=== PATIENT | female | born 1990 | race Caucasian/White ===

== ENCOUNTER 2024-09-16 00:45 | Emergency (ER) | payer BC, SELFPAY ==
[2024-09-16 00:49] VITALS: BP 137/70; PULSE 97; TEMP 36.9; O2SAT 96; BMI 29.0
--- NOTE | 2024-09-16 00:58 | XR_ITS ---
The [address] [address] Patient Name: EDMUND DUONG MRN: [id number] date: 1990 Sex: F Assigned Patient Location: ED.MAIN Current Patient Location: ER Accession/Order Number: [id number] Exam Date: 09/16/2024 01:22 Report Date: 09/16/2024 01:57 At the request of: SHANEL SLATER Procedure: XR chest 1V EXAMINATION:XR chest 1V INDICATION:SOB COMPARISON:None TECHNIQUE:A single frontal view of the chest is submitted. FINDINGS: The cardiomediastinal silhouette is not enlarged. The pulmonary vascularity is within normal limits. The lungs are clear based on chest radiography. There is no costophrenic angle blunting. XR/XR chest 1V IMPRESSION: Unremarkable plain film examination of the chest. Electronically authenticated by: EBEN GILMAN Date: 09/16/2024 01:57
--- NOTE | 2024-09-16 00:58 | ED.SOB1 ---
HPI - SOB/Dyspnea General Chief Complaint: Shortness of Breath/Dyspnea Stated Complaint: sob Time Seen by Provider: 09/16/24 00:46 Source: patient Mode of arrival: walk-in Limitations: no limitations History of Present Illness HPI Narrative: 34-year-old female presents for cough and wheezing and shortness of breath of 3 days duration. She has been coughing up some yellow phlegm. Her kids were ill but they have gotten better and did not need to go to the doctor. She has no history of asthma but she smokes cigarettes. Related Data Previous Rx's ?Medication ?Instructions ?Recorded albuterol sulfate 90 mcg/actuation 2 inh inhalation Q4H PRN shortness 09/16/24 aerosol inhaler of breath or wheezing #8.5 grams Allergies Allergy/AdvReac Type Severity Reaction Status Date / Time amoxicillin (From Augmentin) Allergy Mild Anaphylaxis Verified 09/16/24 00:49 clavulanic acid (From Allergy Mild Anaphylaxis Verified 09/16/24 00:49 Augmentin) PFSH PFSH Social History Little interest or pleasure in doing things: not at all Feeling down, depressed, or hopeless: not at all Exam Constitutional Vital Signs, click to edit/add: Last Vital Signs Temp 98.4 F 09/16/24 00:49 Pulse 84 09/16/24 01:09 Resp 24 H 09/16/24 01:09 BP 137/70 09/16/24 00:49 Pulse Ox 96 09/16/24 01:09 O2 Del Method Room Air 09/16/24 01:09 Course Vital Signs Vital signs: Vital Signs Temperature 98.4 F 09/16/24 00:49 Pulse Rate 97 H 09/16/24 00:49 Respiratory Rate 28 H 09/16/24 00:49 Blood Pressure 137/70 09/16/24 00:49 Pulse Oximetry 96 09/16/24 00:49 Oxygen Delivery Method Room Air 09/16/24 00:49 Temperature 98.4 F 09/16/24 00:49 Pulse Rate 84 09/16/24 01:09 Respiratory Rate 24 H 09/16/24 01:09 Blood Pressure 137/70 09/16/24 00:49 Pulse Oximetry 96 09/16/24 01:09 Oxygen Delivery Method Room Air 09/16/24 01:09 MDM - SOB/Dyspnea MDM Narrative Medical decision making narrative: Chest x-ray, COVID, and influenza test are all negative. She feels very much better after aerosol treatment and she is discharged home on albuterol. Treatment diagnosis and follow-up were discussed with the patient. Differential Diagnosis Differential diagnosis: Likely community acquired pneumonia and other (Viral URI, COVID, influenza) Lab Data Attestation: I reviewed the patient's lab results. Labs: Lab Results 09/16/24 Range/Units 01:04 Influenza Type A Ag Negative Influenza Type B Ag Negative SARS-CoV-2 Ag (CV2AG) Negative (NEGATIVE) Imaging Data Chest x-ray: Radiologist's impression: ITS Impressions Chest X-Ray 09/16/24 00:58 IMPRESSION: Unremarkable plain film examination of the chest. Electronically authenticated by: EBEN GILMAN Date: 09/16/2024 01:57 Discharge Plan Discharge Chief Complaint: Shortness of Breath/Dyspnea Clinical Impression: Viral upper respiratory infection Patient Disposition: Home, Self-Care Time of Disposition Decision: 02:09 Condition: Good Mode of Transportation: Private Vehicle Prescriptions / Home Meds: New albuterol sulfate 90 mcg/actuation HFA aerosol inhaler 2 inh inhalation Q4H PRN (Reason: shortness of breath or wheezing) Qty: 8.5 0RF Print Language: Belarusian Instructions: Upper Respiratory Infection (ED) Referrals: Physician,Non-Staff, MD [Primary Care Provider] - 1 week
[2024-09-16 01:09] VITALS: PULSE 84; O2SAT 96
[2024-09-16] MEDS: ALBUTEROL SULFATE 2.5 MG/3 ML VIAL NEB IH (01:12)
[2024-09-16 01:22] LABS: Influenza Virus A Antigen Negative; Influenza Virus B Antigen Negative; Internal Control Within Normal Limits; SARS-CoV-2 Ag NEGATIVE (NEGATIVE)
[2024-09-16 02:23] VITALS: PULSE 81; O2SAT 97
== END 2024-09-16 02:14 | disposition home or self-care (01) ==
PROVIDERS: Emergency Provider Emergency Medicine
DX: J06.9 Acute upper respiratory infection, unspecified (principal); Z20.822 Contact with and (suspected) exposure to COVID-19
CPT/HCPCS: 71045; 87804; 87811; 94640; 99284

== ENCOUNTER 2024-12-02 19:38 | Emergency (ER) | payer BC, SELFPAY ==
[2024-12-02] VITALS (19 sets, daily range): BP systolic 108–153; BP diastolic 50–74; PULSE 72–102; TEMP 36.7; O2SAT 96–100; BMI 29.8
--- OUTSIDE RECORDS SUMMARY | 2024-12-02 19:43 | XMS_ITS | CCD ---
Author Organization [facility] Care Team Providers Care Music Instructor Name Role Phone Roshni Dow Unavailable Maxime Hardy Unavailable MD Fatemeh Neil Primary Care Provider MD Orlando Pereira Attending Provider Orlando Pereira Unavailable MD Fatemeh Neil Primary Care Provider DO Edmar Khan Emergency Provider Fatemeh Neil Primary Care Unavailable Edmar Khan Admitting Unavailable Edmar Khan Attending Unavailable Orlando Pereira Admitting Unavailable Orlando Pereira Attending Unavailable Fatemeh Neil Primary Care Unavailable LANDENECK, DR MONICA Vargas Admitting Unavailabl e REINECK, DR MONICA Vargas Attending Unavailabl e REINECK, DR MONICA Vargas Consulting Unavailabl e JOLYNN, DR SCHMIDT Primary Care Unavailable JOLYNN, DR SCHMIDT Primary Care Unavailable JEWELS, DR JENNIFER Castillo Consulting Unavailable HEMMER, DR KELLE Ozuna Admitting Unavailable HEMMER, DR KELLE Ozuna Attending Unavailable HEMMER, DR KELLE Ozuna Consulting Unavailable JOLYNN, DR SCHMIDT Primary Care Unavailable JEWELS, DR JENNIFER Castillo Consulting Unavailable SIOMARA ROXANE Admitting Unavailable SIOMARAROXANE Attending Unavailable SIOMARA ROXANE Consulting Unavailable JOLYNN, DR SCHMIDT Primary Care Unavailable KARASIK ., DR PIERCE Admitting Unavailabl e KARASIK ., DR PIERCE Attending Unavailabl e KARASIK ., DR PIERCE Consulting Unavailabl e WEST, DR JENNIFER Castillo Consulting Unavailable JOLYNN, DR SCHMIDT Primary Care Unavailable JAQUAN HEMAL Admitting Unavailable JAQUANJACOBY Attending Unavailable JAQUAN, HEMAL Consulting Unavailable Zieber, Irineo Consulting Unavailable DR FATEMEH NEIL Primary Care Unavailable ROXANE STRINGER Attending Unavailable ROXANE STRINGER Admitting Unavailable DR FATEMEH NEIL Primary Care Unavailable ZEINA ., DR VALLE Admitting Unavailable ZEINA ., DR VALLE Attending Unavailable ZEINA ., DR VALLE Consulting Unavailable LD BLAS Consulting Unavailable Chriss CORONA Attending Unavailable Fatemeh Neil MD Primary Care Provider [phone] KELLE REYNOLDS Attending Unavailable Allergies Allergy Classification Reported Allergen(s) Allergy Type Date of Onset Reaction(s) Facility (6 sources) Sulfamethoxazole / Trimethoprim Drug Allergy 09-20-20 24 Anaphylaxis [employer] Other (5 sources) Sulfamethoxazole; Translations: [sulfamethoxazole] Drug Allergy 07-27-20 21 Swelling of Lip/Tongue/Thr oat [facility] (5 sources) Trimethoprim; Translations: [trimethoprim] Drug Allergy 07-27-20 21 Swelling of Lip/Tongue/Thr oat [facility] (2 sources) Sulfamethoxazole / Trimethoprim; Translations: [Bactrim] Drug Allergy 11-09-19 15 [facility] Repository Medications Current Medications Medication Drug Class(es) Dates Sig (Normalized) Sig (Original) acetaminophen 325 mg / HYDROcodone bitartrate 5 mg oral tablet (2 sources) Opioid Agonist Start: 07-27-2021 take 1 tablet by mouth every six hours Hydrocodone-Acetam inophen Active 1 TAB PO Q6H 10 3 July 27, 2021 [id number] 200 actuat albuterol 0.09 mg/actuat metered dose inhaler (4 sources) beta2-Adrenergic Agonist Start: 09-16-2024 End: 09-20-2024 take 2 puff(s) by inhalation every four hours for wheezing albuterol HFA 90 mcg/act inhaler Indications: Acute bronchitis, unspecified organism Inhale 2 puffs every 4 (four) hours if needed for wheezing or shortness of breath 18 g 09/20/2024 Active amoxicillin 875 mg oral tablet (1 source) Penicillin-class Antibacterial Start: 12-01-2021 take 1 tablet by mouth every eight hours Amoxicillin 875 MG 1 tablet Orally every 8 hrs for 10 day(s) Nov, Active azithromycin 250 mg oral tablet (2 sources) Macrolide Antimicrobial Start: 09-20-2024 End: 09-24-2024 take 2 tablets by mouth once daily, then take 1 tablet by mouth once daily azithromycin (Zithromax) 250 MG tablet Indications: Acute bronchitis, unspecified organism Take 2 tablets (500 mg) by mouth Daily for 1 day, THEN 1 tablet (250 mg) Daily for 4 days. 6 tablet 09/20/2024 09/24/2024 Active buprenorphine 8 mg / naloxone 2 mg sublingual film (2 sources) Partial Opioid Agonist, Opioid Antagonist Start: 09-07-2024 Buprenorphine HCl-Naloxone HCl (Suboxone) 8-[address] 1 Film under the tongue 09/07/2024 Active DULoxetine 30 mg delayed release oral capsule (6 sources) Serotonin and Norepinephrine Reuptake Inhibitor take 1 capsule by mouth every twenty-four hours Cymbalta 30 MG 1 capsule Orally Once a day Active take 1 capsule by mo coh every twenty-four hours Cymbalta 60 MG 1 capsule Orally Once a day Active ketorolac tromethamine 10 mg oral tablet (2 sources) Nonsteroidal Anti-inflammatory Drug, Cyclooxygenase Inhibitor Start: 07-27-2021 take 10 mg by mouth every eight hours Ketorolac Active 10 MG PO Q8H July 27, 2021 12:00am naproxen 500 mg oral tablet (4 sources) Nonsteroidal Anti-inflammatory Drug Start: 02-18-2022 take 1 tablet by mouth every twelve hours at mealtime as needed Naproxen 500 MG 1 tablet with food or milk as needed Orally every 12 hrs for 7 days Feb, Active Start: 12-01-2021 take 1 tablet by zahira th every twelve hours at mealtime as needed Naproxen Sodium 550 MG 1 tablet with food or milk as needed Orally every 12 hrs for 7 days Nov, Active penicillin v potassium 500 mg oral tablet (2 sources) Start: 07-27-2021 take 500 mg by mouth four times daily Penicillin V Potassium Active 500 MG PO Four times daily 30 05July 27, 2021 12:00am predniSONE 10 mg oral tablet (4 sources) Start: 09-20-2024 End: 09-28-2024 take 1 tablet by mouth three times daily, then take 1 tablet by mouth twice daily, then take 1 tablet by mouth once daily predniSONE (Deltasone) 10 MG tablet Indications: Acute bronchitis, unspecified organism Take 1 tablet (10 mg) by mouth 3 (three) times a day for 3 days, THEN 1 tablet (10 mg) 2 (two) times a day for 3 days, THEN 1 tablet (10 mg) Daily for 3 days. 18 tablet 09/20/2024 09/28/2024 Active Start: 07-27-2021 take 50 mg by mouth once daily at mealtime Prednisone Active 50 MG PO Daily 03 07July 27, 2021 12:00am administer with food or milk Completed/Discontinued Medications Medication Drug Class(es) Dates Sig (Normalized) Sig (Original) citalopram 20 mg oral tablet (2 sources) Serotonin Reuptake Inhibitor Start: 08-09-2024 End: 09-20-2024 take 1 tablet by mouth once daily citalopram (CeleXA) 20 MG tablet Take 20 mg by mouth Daily 08/09/2024 09/20/2024 Discontinued (Other) Toradol 30 mg/ml (3 sources) Start: 12-01-2021 Toradol 30 mg/ml Nov, 60 mg traZODone hydrochloride 50 mg oral tablet (5 sources) Serotonin Reuptake Inhibitor Start: 03-18-2024 End: 09-20-2024 take 1 tablet by mouth once daily at bedtime as needed traZODone (Desyrel) 50 MG tablet Indications: Insomnia, unspecified TAKE 1 TABLET BY MOUTH EVERY DAY AT BEDTIME NEEDED 90 tablet 03/18/2024 09/20/2024 Discontinued (Other) take 1 tablet by zahira th every twenty-four hours traZODone HCl 50 MG 1 tablet at bedtime as needed Orally Once a day Active Problems Active Problems Problem Classification Problem Date Documented Da te Episodic/Chronic Abdominal pain (3 sources) Abdominal pain; Translations: [Unspecified abdominal pain] Onset: 4 03-11-2023 Episodic Acute bronchitis (2 sources) Acute bronchitis; Translations: [Acute bronchitis, unspecified] 09-20-2024 Episodic Joint disorders and dislocations; trauma-related (4 sources) Dislocation of temporomandibular joint; Translations: [Dislocation of jaw, unspecified side, initial encounter] Onset: 4 07-27-2021 Episodic Malaise and fatigue (2 sources) Fatigue; Translations: [Chronic fatigue, unspecified] Onset: 4 09-20-2024 Chronic Mood disorders (2 sources) Major depression, single episode; Translations: [Major depressive disorder, single episode, unspecified] Onset: 4 09-20-2024 Chronic Other endocrine disorders (2 sources) Hyperparathyroidism; Translations: [Hyperparathyroidism, unspecified] Onset: 4 09-20-2024 Chronic Other gastrointestinal disorders (3 sources) Dysphagia; Translations: [Dysphagia, unspecified] Onset: 4 09-20-2024 Episodic Other nervous system disorders (2 sources) Loss of taste; Translations: [Parageusia] Onset: 4 09-20-2024 Episodic Other nutritional; endocrine; and metabolic disorders (2 sources) Hypercalcemia; Translations: [Hypercalcemia] Onset: 4 09-20-2024 Chronic Other screening for suspected conditions (not mental disorders or infectious disease) (13 sources) Other abnormal and inconclusive findings on diagnostic imaging of breast; Translations: [Encounter for screening mammogram for malignant neoplasm of breast] Onset: 4 Episodic Residual codes; unclassified (1 source) Family history of malignant neoplasm of breast; Translations: [FAMILY HX MALIG NEOPLASM OF BREAST] Onset: 3 Episodic Residual codes; unclassified (2 sources) Insomnia; Translations: [Insomnia, unspecified] Onset: 4 09-20-2024 Episodic Substance-related disorders (3 sources) Nicotine dependence, cigarettes, uncomplicated; Translations: [Smoker] Onset: 3 09-20-2024 Chronic Unclassified (1 source) Encounter for preprocedural laboratory examination; Translations: [Encounter for preprocedural laboratory examination] Onset: 2 Unclassified (2 sources) COUGH, UNSPECIFIED; Translations: [COUGH, UNSPECIFIED] Onset: 3 Viral infection (2 sources) COVID-19; Translations: [Other specified viral infection] Onset: 4 09-20-2024 Episodic Past or Other Problems Problem Classification Problem Date Documented Da te Episodic/Chronic Crushing injury or internal injury (1 source) Crushing injury of right ankle, initial encounter; Translations: [CRUSHING INJURY RIGHT ANKLE INITIAL] Onset: 05-01-2022 Episodic Disorders of teeth and jaw (1 source) Periapical abscess without sinus Onset: 12-01-2021 Resolved: 12-01-2021 Episodic E Codes: Other specified and classifiable (1 source) Caught, crushed, jammed, or pinched between moving objects, initial encounter; Translations: [CAUGHT CRUSH/PINCH BTWN MOV OBJ INT] Onset: 05-01-2022 Episodic Malaise and fatigue (4 sources) Other fatigue; Translations: [OTHER FATIGUE] Onset: 10-14-2022 Episodic Other gastrointestinal disorders (1 source) Dysphagia, unspecified; Translations: [DYSPHAGIA UNSPECIFIED] Onset: 10-19-2022 Episodic Other non-traumatic joint disorders (1 source) Pain in right knee Onset: 02-18-2022 Resolved: 02-18-2022 Episodic Other non-traumatic joint disorders (3 sources) Pain in right ankle and joints of right foot; Translations: [PAIN IN RIGHT ANKLE] Onset: 04-28-2022 Episodic Other nutritional; endocrine; and metabolic disorders (1 source) Abnormal weight loss; Translations: [ABNORMAL WEIGHT LOSS] Onset: 10-19-2022 Episodic Other upper respiratory infections (1 source) Acute upper respiratory infection, unspecified; Translations: [ACUTE UP RESPIRATORY INFECTION UNS] Onset: 11-18-2022 Episodic Otitis media and related conditions (1 source) Otitis media, unspecified, left ear; Translations: [OTITIS MEDIA UNSPECIFIED LEFT EAR] Onset: 11-18-2022 Episodic Sprains and strains (2 sources) Sprain of unspecified site of right knee, initial encounter; Translations: [Sprain of unspecified ligament of right ankle, initial encounter] Onset: 02-18-2022 Resolved: 02-18-2022 Episodic Superficial injury; contusion (6 sources) Contusion of right thigh, subsequent encounter; Translations: [Contusion of right thigh, initial encounter] Onset: 05-01-2022 Episodic Unclassified (1 source) COUGH, UNSPECIFIED; Translations: [COUGH, UNSPECIFIED] Onset: 11-17-2022 Results Test Name Value Interpretation Reference Range Facility [facility] 01-01-2024 Consent [id number] Normal [facility] Registrationon 01-01-2024 Registration [id number] Normal [facility] Alanine aminotransferase [En zymatic activity/volume] in Serum or PlasmaOrdered By: Edmar Khan on 03-11-2023 ALT [Catalytic activity/Vol] 12 U/L 7-52 [facility] Albumin [Mass/volume] in Ser um or Plasma by Bromocresol green (BCG) dye binding methoOrdered By: Edmar Khan on 03-11-2023 Albumin BCG dye [Mass/Vol] 4.2 g/dL 3.5-5.7 [facility] Alkaline phosphatase [Enzyma tic activity/volume] in Serum or PlasmaOrdered By: Edmar Khan on 03-11-2023 ALP [Catalytic activity/Vol] 52 U/L 34-104 [facility] Aspartate aminotransferase [ Enzymatic activity/volume] in Serum or PlasmaOrdered By: Edmar Khan on 03-11-2023 AST [Catalytic activity/Vol] 22 U/L 13-39 [facility] Basic Metabolic Panelon Anion gap [Moles/Vol] 13.6 mmol/L Normal 6.0-15.0 [facility] Comment on above: Performed By: #### C BC, HEPATIC, LIPASE, BMP #### [facility] [address] [place] [address] [place] Calcium [Mass/Vol] 9.0 mg/dL Normal 8.6-10.3 [facility] Comment on above: Performed By: #### C BC, HEPATIC, LIPASE, BMP #### [facility] [address] [place] [address] [place] Chloride [Moles/Vol] 106 mmol/L Normal 98-107 [facility] Comment on above: Performed By: #### C BC, HEPATIC, LIPASE, BMP #### [facility] [address] [place] [id number] [place] CO2 [Moles/Vol] 20.2 mmol/L Low 21.0-31.0 [facility] Comment on above: Performed By: #### C BC, HEPATIC, LIPASE, BMP #### [facility] [address] [place] [address] [place] Creatinine [Mass/Vol] 0.60 mg/dL Normal 0.60-1.20 [facility] Comment on above: Performed By: #### C BC, HEPATIC, LIPASE, BMP #### [facility] [address] [place] [address] [place] Creatinine Clr Calc Pharmacy 144.[address] [facility] Comment on above: Performed By: #### C BC, HEPATIC, LIPASE, BMP #### [facility] [address] [place] [address] [place] GFR/1.73 sq M.predicted MDRD (S/P/Bld) [Vol rate/Area] mL/min/{1.73_m2} [facility] Comment on above: Performed By: #### C BC, HEPATIC, LIPASE, BMP #### [address] Glucose [Mass/Vol] 78 mg/dL Normal 70-100 [facility] Comment on above: Result Comment: [facility] Glucose Reference Range is dependent on time and content of last meal. Glucose of more than 200 mg/dL in a nonstressed, ambulatory subject supports the diagnosis of Diabetes Mellitus. ADA recommended reference range Performed By: #### C BC, HEPATIC, LIPASE, BMP #### [facility] [address] Potassium [Moles/Vol] 3.8 mmol/L Normal 3.5-5.1 [facility] Comment on above: Performed By: #### C BC, HEPATIC, LIPASE, BMP #### [facility] [address] [place] [address] [place] Sodium [Moles/Vol] 136 mmol/L Normal 136-145 [facility] Comment on above: Performed By: #### C BC, HEPATIC, LIPASE, BMP #### [facility] [address] Urea nitrogen [Mass/Vol] 6 mg/dL Low 7-25 [facility] Comment on above: Performed By: #### C BC, HEPATIC, LIPASE, BMP #### [facility] [address] Basophils Auto (Bld) [#/Vol] Ordered By: Edmar Khan on 03-11-2023 Basophils (Bld) [#/Vol] 0.1 10*3/uL 0.0-0.2 [facility] Basophils/100 WBC Auto (Bld) Ordered By: Edmar Khan on 03-11-2023 Basophils/100 WBC (Bld) 1.0 % . [facility] Bilirubin Test strip Ql (U)O rdered By: PROVIDER TEMP on 03-11-2023 Bilirubin Ql (U) Negative Negative [facility] Bilirubin.direct [Mass/volum e] in Serum or PlasmaOrdered By: Edmar Khan on 03-11-2023 Bilirubin.direct [Mass/Vol] 0.00 mg/dL 0.03-0.18 [facility] Comment on above: If the DBIL is less than 0.1, IBIL is not able to becalculated. Bilirubin.total [Mass/volume ] in Serum or PlasmaOrdered By: Edmar Khan on 03-11-2023 Bilirubin [Mass/Vol] 0.4 mg/dL 0.3-1.0 [facility] Calcium [Mass/volume] in Ser um or PlasmaOrdered By: Edmar Khan on 03-11-2023 Calcium [Mass/Vol] 9.0 mg/dL 8.6-10.3 [facility] Carbon dioxide, total [Moles /volume] in Serum or PlasmaOrdered By: Edmar Khan on 03-11-2023 CO2 [Moles/Vol] 20.2 mmol/L 21.0-31.0 [facility] Chloride [Moles/volume] in S nikolas or PlasmaOrdered By: Edmar Khan on 03-11-2023 Chloride [Moles/Vol] 106 mmol/L 98-107 [facility] Color Auto (U)Ordered By: CELESTE THOMAS TEMP on 03-11-2023 Color (U) Yellow Yellow [facility] Complete Blood Count Auto Di ffon 03-11-2023 Basophils (Bld) [#/Vol] 0.1 10*3/uL Normal 0.0-0.2 [facility] Comment on above: Result Comment: PERF ORMED BY: [place] [address] PATHOLOGIST INTERMEDIATE FRAME TENDER SHAUN PARHAM M.D. Performed By: #### C BC, HEPATIC, LIPASE, BMP #### [facility] [address] [place] [address] Basophils/100 WBC (Bld) 1.0 % Normal . F [facility] Comment on above: Performed By: #### C BC, HEPATIC, LIPASE, BMP #### [facility] [address] [place] [address] Eosinophils (Bld) [#/Vol] 0.3 10*3/uL Normal 0.0-0.45 [facility] Comment on above: Performed By: #### C BC, HEPATIC, LIPASE, BMP #### [facility] [address] [place] [address] Eosinophils/100 WBC (Bld) 5.0 % Normal . [facility] Comment on above: Performed By: #### C BC, HEPATIC, LIPASE, BMP #### [facility] [address] [place] [address] Erythrocyte distribution width (RBC) [Ratio] 14.9 % Normal 11.9-15.3 [facility] Comment on above: Performed By: #### C BC, HEPATIC, LIPASE, BMP #### [facility] [address] [place] [address] Hematocrit (Bld) [Volume fraction] 45.5 % Normal 34.0-46.4 [facility] Comment on above: Performed By: #### C BC, HEPATIC, LIPASE, BMP #### [facility] [address] [place] [address] Hemoglobin (Bld) [Mass/Vol] 15.1 g/dL Normal 11.8-15.4 [facility] Comment on above: Performed By: #### C BC, HEPATIC, LIPASE, BMP #### [facility] [address] [place] [address] [place] Lymphocytes (Bld) [#/Vol] 2.5 10*3/uL Normal 1.00-4.8 [facility] Comment on above: Performed By: #### C BC, HEPATIC, LIPASE, BMP #### [address] Lymphocytes/100 WBC (Bld) 36.8 % Normal . [facility] Comment on above: Performed By: #### C BC, HEPATIC, LIPASE, BMP #### [address] MCH (RBC) [Entitic mass] 28.0 pg Normal 24.7-34.3 [facility] Comment on above: Performed By: #### C BC, HEPATIC, LIPASE, BMP #### [address] MCV (RBC) [Entitic vol] 84.7 fL Normal 80-[address] [facility] Comment on above: Performed By: #### C BC, HEPATIC, LIPASE, BMP #### [address] Mean Corpuscular HGB Conc 33.1 g/dL Normal 32.0-35.0 [facility] Comment on above: Performed By: #### C BC, HEPATIC, LIPASE, BMP #### [address] Monocytes (Bld) [#/Vol] 0.5 10*3/uL Normal 0.0-0.8 [facility] Comment on above: Performed By: #### C BC, HEPATIC, LIPASE, BMP #### [address] Monocytes/100 WBC (Bld) 15.29 % Normal 0.00-20.[address] [facility] Comment on above: Performed By: #### C BC, HEPATIC, LIPASE, BMP #### [address] Monocytes/100 WBC (Bld) 8.0 % Normal . F [facility] Comment on above: Performed By: #### C BC, HEPATIC, LIPASE, BMP #### [address] [place] [address] [place] Neutrophils (Bld) [#/Vol] 3.3 10*3/uL Normal 1.8-7.7 [facility] Comment on above: Performed By: #### C BC, HEPATIC, LIPASE, BMP #### [facility] [address] Neutrophils/100 WBC (Bld) 49.2 % Normal . [facility] Comment on above: Performed By: #### C BC, HEPATIC, LIPASE, BMP #### [facility] [address] NRBC% 0.2 /100{WBC} Normal 0-0.5 [facility] Comment on above: Performed By: #### C BC, HEPATIC, LIPASE, BMP #### [address] Platelet mean volume (Bld) [Entitic vol] 7.2 fL Normal 6.3-10.7 [facility] Comment on above: Performed By: #### C BC, HEPATIC, LIPASE, BMP #### [place] [address] [place] Platelets (Bld) [#/Vol] 215 10*3/uL Normal 150-450 [facility] Comment on above: Performed By: #### C BC, HEPATIC, LIPASE, BMP #### [facility] [address] [place] [address] RBC (Bld) [#/Vol] 5.38 10*6/uL High 3.60-5.00 [facility] Comment on above: Performed By: #### C BC, HEPATIC, LIPASE, BMP #### [facility] [address] [place] [address] [place] WBC (Bld) [#/Vol] 6.7 10*3/uL Normal 3.8-11.6 [facility] Comment on above: Performed By: #### C BC, HEPATIC, LIPASE, BMP #### [address] Creatinine [Mass/volume] in Serum or PlasmaOrdered By: Edmar Khan on 03-11-2023 Creatinine [Mass/Vol] 0.60 mg/dL 0.60-1.20 [facility] Eosinophils Auto (Bld) [#/Vo l]Ordered By: Edmar Khan on 03-11-2023 Eosinophils (Bld) [#/Vol] 0.3 10*3/uL 0.0-0.45 [facility] Eosinophils/100 WBC Auto (Bl d)Ordered By: Edmar Khan on 03-11-2023 Eosinophils/100 WBC (Bld) 5.0 % . [facility] Erythrocyte distribution wid th Auto (RBC) [Ratio]Ordered By: Edmar Khan on 03-11-2023 Erythrocyte distribution width (RBC) [Ratio] 14.9 % 11.9-15.3 [facility] Globulin Calc (S) [Mass/Vol] Ordered By: Edmar Khan on 03-11-2023 Globulin (S) [Mass/Vol] 2.4 g/dL [facility] Glucose [Mass/volume] in Ser um or PlasmaOrdered By: Edmar Khan on 03-11-2023 Glucose [Mass/Vol] 78 mg/dL 70-100 [facility] Comment on above: ADA recommended refe rence rangeRandom Glucose Reference Range is dependent on time and content of last meal. Glucose of more than 200 mg/dL in a nonstressed, ambulatory subject supports the diagnosis of Diabetes Mellitus. HCG ( test) [place].rapi d Ql (U)Ordered By: PROVIDER TEMP on 03-11-2023 HCG ( test) Ql (U) Negative [facility] HCG,Urineon 03-11-2023 Beta HCG ( test) Ql (U) Negative Normal [facility] Comment on above: Order Comment: Name Collection Type:: Clean-Voided Midstream Result Comment: PERF ORMED BY: [place] [address] PATHOLOGIST INTERMEDIATE FRAME TENDER SHAUN PARHAM M.D. Performed By: #### U A, [facility] #### [address] Hematocrit Auto (Bld) [Volum e fraction]Ordered By: Edmar Khan on 03-11-2023 Hematocrit (Bld) [Volume fraction] 45.5 % 34.0-46.4 [facility] Hemoglobin [Mass/volume] in BloodOrdered By: Edmar Khan on 03-11-2023 Hemoglobin (Bld) [Mass/Vol] 15.1 g/dL 11.8-15.4 [facility] Hepatic Panelon 03-11-2023 Albumin [Mass/Vol] 4.2 g/dL Normal 3.5-5.7 [facility] Comment on above: Performed By: #### C BC, HEPATIC, LIPASE, BMP #### [facility] [address] Albumin/Globulin [Mass ratio] 1.8 {ratio} Normal [facility] Comment on above: Performed By: #### C BC, HEPATIC, LIPASE, BMP #### [facility] [address] [place] [address] [place] ALP [Catalytic activity/Vol] 52 U/L Normal 34-104 [facility] Comment on above: Performed By: #### C BC, HEPATIC, LIPASE, BMP #### [facility] [address] [place] [address] [place] ALT [Catalytic activity/Vol] 12 U/L Normal 7-52 [facility] Comment on above: Performed By: #### C BC, HEPATIC, LIPASE, BMP #### [facility] [address] [place] [id number] [place] AST [Catalytic activity/Vol] 22 U/L Normal 13-39 [facility] Comment on above: Performed By: #### C BC, HEPATIC, LIPASE, BMP #### [facility] [address] [place] [id number] [place] Bilirubin [Mass/Vol] 0.4 mg/dL Normal 0.3-1.0 [facility] Comment on above: Performed By: #### C BC, HEPATIC, LIPASE, BMP #### [facility] [address] [place] [id number] [place] Bilirubin,Indirect 0.4 mg/dL Normal [facility] Comment on above: Performed By: #### C BC, HEPATIC, LIPASE, BMP #### [address] Bilirubin.indirect [Mass/Vol] 0.00 mg/dL Low 0.03-0.18 [facility] Comment on above: Result Comment: If t he DBIL is less than 0.1, IBIL is not able to be calculated. Performed By: #### C BC, HEPATIC, LIPASE, BMP #### [address] Globulin (S) [Mass/Vol] 2.4 g/dL Normal [facility] Comment on above: Performed By: #### C BC, HEPATIC, LIPASE, BMP #### [address] Protein [Mass/Vol] 6.6 g/dL Normal 6.4-8.9 [facility] Comment on above: Performed By: #### C BC, HEPATIC, LIPASE, BMP #### [address] Ketones Auto test strip (U) [Mass/Vol]Ordered By: PROVIDER TEMP on 03-11-2023 Ketones (U) [Mass/Vol] Negative Negative [facility] Leukocytes [#/volume] correc mariana for nucleated erythrocytes in Blood by Automated counOrdered By: Edmar Khan on 03-11-2023 WBC corrected for nucl RBC Auto (Bld) [#/Vol] 6.7 10*3/uL 3.8-11.6 [facility] Lipaseon 03-11-2023 Lipase [Catalytic activity/Vol] 10.0 U/L Low 11.0-82.0 [facility] Comment on above: Result Comment: PERF ORMED BY: [place] [address] PATHOLOGIST INTERMEDIATE FRAME TENDER SHAUN PARHAM M.D. Performed By: #### C BC, HEPATIC, LIPASE, BMP #### [address] Lipase [Enzymatic activity/v olume] in Serum or PlasmaOrdered By: Edmar Khan on 03-11-2023 Lipase [Catalytic activity/Vol] 10.0 U/L 11.0-82.0 [facility] Lymphocytes Auto (Bld) [#/Vo l]Ordered By: Edmar Khan on 03-11-2023 Lymphocytes (Bld) [#/Vol] 2.5 10*3/uL 1.00-4.8 [facility] Lymphocytes/100 WBC Auto (Bl d)Ordered By: Edmar Khan on 03-11-2023 Lymphocytes/100 WBC (Bld) 36.8 % . [facility] MCH Auto (RBC) [Entitic mass ]Ordered By: Edmar Khan on 03-11-2023 MCH (RBC) [Entitic mass] 28.0 pg 24.7-34.3 [facility] MCHC Auto (RBC) [Mass/Vol]Or dered By: Edmar Khan on 03-11-2023 MCHC (RBC) [Mass/Vol] 33.1 g/dL 32.0-35.0 [facility] MCV Auto (RBC) [Entitic vol] Ordered By: Edmar Khan on 03-11-2023 MCV (RBC) [Entitic vol] 84.7 fL 80-[address] [facility] Monocyte distribution width [Entitic volume] in Blood by AutomatedOrdered By: Edmar Khan on 03-11-2023 Monocyte distribution width Auto (Bld) [Entitic vol] 15.29 % 0.00-20.00 [facility] Monocytes Auto (Bld) [#/Vol] Ordered By: Edmar Khan on 03-11-2023 Monocytes (Bld) [#/Vol] 0.5 10*3/uL 0.0-0.8 [facility] Monocytes/100 WBC Auto (Bld) Ordered By: Edmar Khan on 03-11-2023 Monocytes/100 WBC (Bld) 8.0 % . [facility] Neutrophils Auto (Bld) [#/Vo l]Ordered By: Edmar Khan on 03-11-2023 Neutrophils (Bld) [#/Vol] 3.3 10*3/uL 1.8-7.7 [facility] Neutrophils/100 WBC Auto (Bl d)Ordered By: Edmar Khan on 03-11-2023 Neutrophils/100 WBC (Bld) 49.2 % . [facility] Nitrite Test strip Ql (U)Ord ered By: PROVIDER TEMP on 03-11-2023 Nitrite Ql (U) Negative Negative [facility] No Panel InformationOrdered By: Edmar Khan on 03-11-2023 Estimated GFR (CKD-EPI) > 60.0 mL/Min [facility]acy Creatinine Clearance (Chem 144.87 [facility] Nucleated erythrocytes [Pres ence] in Blood by Automated countOrdered By: Edmar Khan on 03-11-2023 Nucleated RBC Auto Ql (Bld) 0.2 /100{WBC} 0-0.5 [facility] Platelet mean volume Auto (B ld) [Entitic vol]Ordered By: Edmar Khan on 03-11-2023 Platelet mean volume (Bld) [Entitic vol] 7.2 fL 6.3-10.7 [facility] Platelets Auto (Bld) [#/Vol] Ordered By: Edmar Khan on 03-11-2023 Platelets (Bld) [#/Vol] 215 10*3/uL 150-450 [facility] Potassium [Moles/volume] in Serum or PlasmaOrdered By: Edmar Khan on 03-11-2023 Potassium [Moles/Vol] 3.8 mmol/L 3.5-5.1 [facility] Protein Auto test strip (U) [Mass/Vol]Ordered By: PROVIDER TEMP on 03-11-2023 Protein (U) [Mass/Vol] Negative Negative [facility] Protein [Mass/volume] in Ser um or PlasmaOrdered By: Edmar Khan on 03-11-2023 Protein [Mass/Vol] 6.6 g/dL 6.4-8.9 [facility] RBC Auto (Bld) [#/Vol]Ordere d By: Edmar Khan on 03-11-2023 RBC (Bld) [#/Vol] 5.38 10*6/uL 3.60-5.00 [facility] Serum or plasma albumin/glob ulin mass ratioOrdered By: Edmar Khan on 03-11-2023 Albumin/Globulin [Mass ratio] 1.8 {ratio} [facility] Serum or plasma anion gap de terminationOrdered By: Edmar Khan on 03-11-2023 Anion gap [Moles/Vol] 13.6 mmol/L 6.0-15.0 [facility] Serum or plasma non-glucuron idated bilirubin measurement (mass/volume)Ordered By: Edmar Khan on 03-11-2023 Bilirubin.indirect [Mass/Vol] 0.4 mg/dL [facility] Sodium [Moles/volume] in Ser um or PlasmaOrdered By: Edmar Khan on 03-11-2023 Sodium [Moles/Vol] 136 mmol/L 136-145 [facility] Specific gravity Auto test s trip (U) [Rel density]Ordered By: MARY JANE TEMP on 03-11-2023 Specific gravity (U) [Rel density] 1.016 1.001-1.030 [facility] Urea nitrogen [Mass/volume] in Serum or PlasmaOrdered By: Edmar Khan on 03-11-2023 Urea nitrogen [Mass/Vol] 6 mg/dL 7-25 [facility] Urinalysison 03-11-2023 Appearance (U) Clear Normal Clear [facility] Comment on above: Order Comment: Name Collection Type:: Clean-Voided Midstream Performed By: #### U A, CG #### [facility] [address] [place] [address] [place] Bilirubin,Urine Negative Normal Negative [facility] Comment on above: Order Comment: Name Collection Type:: Clean-Voided Midstream Performed By: #### U A, UHCG #### [facility] [address] [place] [id number] [place] Color (U) Yellow Normal Yellow [facility] Comment on above: Order Comment: Name Collection Type:: Clean-Voided Midstream Performed By: #### U A, UHCG #### [facility] [address] [place] [id number] [place] Glucose Ql (U) Normal Normal Normal [facility] Comment on above: Order Comment: Name Collection Type:: Clean-Voided Midstream Performed By: #### U A, UHCG #### [address] Ketones Ql (U) Negative Normal Negative [facility] Comment on above: Order Comment: Name Collection Type:: Clean-Voided Midstream Performed By: #### U A, UHCG #### [address] Leukocyte esterase Test strip Ql (U) Negative Normal Negative [facility] Comment on above: Order Comment: Name Collection Type:: Clean-Voided Midstream Performed By: #### U A, UHCG #### [address] Nitrite,Urine Negative Normal Negative [facility] Comment on above: Order Comment: Name Collection Type:: Clean-Voided Midstream Performed By: #### U A, UHCG #### [address] Occult Blood,Urine Negative Normal Negative [facility] Comment on above: Order Comment: Name Collection Type:: Clean-Voided Midstream Performed By: #### U A, UHCG #### [address] pH (U) 5.5 [pH] Normal 5.0-9.0 [facility] Comment on above: Order Comment: Name Collection Type:: Clean-Voided Midstream Performed By: #### U A, UHCG #### [address] Protein,Urine Negative Normal Negative [facility] Comment on above: Order Comment: Name Collection Type:: Clean-Voided Midstream Performed By: #### U A, UHCG #### [place] [address] [place] Specificy [place],Urine 1.016 Normal 1.001-1.030 [facility] Comment on above: Order Comment: Name Collection Type:: Clean-Voided Midstream Performed By: #### U A, UHCG #### [address] Urobilinogen,Urine Normal Normal Normal [facility] Comment on above: Order Comment: Name Collection Type:: Clean-Voided Midstream Performed By: #### U Kiana [facility] #### [facility] [address] Urine clarity by refractomet ry automatedOrdered By: PROVIDER TEMP on 03-11-2023 Clarity Refractometry automated (U) Clear Clear [facility] Urine glucose measurement by automated test strip (mass/volume)Ordered By: PROVIDER TEMP on 03-11-2023 Glucose Auto test strip (U) [Mass/Vol] Normal mg/dL Normal [facility] Urine hemoglobin detection b y automated test stripOrdered By: PROVIDER TEMP on 03-11-2023 Hemoglobin Auto test strip Ql (U) Negative Negative [facility] Urine leukocyte esterase det ection by automated test stripOrdered By: PROVIDER TEMP on 03-11-2023 Leukocyte esterase Auto test strip Ql (U) Negative Negative [facility] Urobilinogen Auto test strip (U) [Mass/Vol]Ordered By: PROVIDER TEMP on 03-11-2023 Urobilinogen (U) [Mass/Vol] Normal mg/dL Normal [facility] WBC Auto (Bld) [#/Vol]Ordere d By: Edmar Khan on 03-11-2023 WBC (Bld) [#/Vol] 6.7 10*3/uL 3.8-11.6 [facility] XR acute abdomen serieson XR acute abdomen series [facility] [address] [place] [address] [place] [address] XRay Report Signed Patient: Edmund Duong MR#: [id number] : 1990 Acct:[id number] Age/Sex: 33 / F ADM Date: 03/11/23 Loc: ER Room: Type: [facility] ER Attending Dr: Copies to: Edmar Khan DO Ordering Provider: Edmar Khan DO Date of Service: 03/11/23 XR/XR acute abdomen series: Abdominal Pain XR acute abdomen series 03/11/2023 5:01 PM SIGNS AND SYMPTOMS: Abdominal pain radiating to left and into back PROTOCOL: Frontal radiographs of the chest, abdomen, and pelvis COMPARISON: None FINDINGS: The trachea is midline. The heart and mediastinal structures are within normal limits. The lung parenchyma is clear. The bony thorax is intact. Degenerative changes are noted in the sacroiliac joints and hips. There is a nonobstructive bowel gas pattern. No radiographic evidence of free air. No definite radiodense renal, ureteral, or bladder stones. XR/XR acute abdomen series IMPRESSION: No acute cardiopulmonary pathology. No bowel obstruction or free air. No evidence of radiodense renal, ureteral, or bladder stone. Impression dictated by: Epifanio Jordan M.D.03/11/2023 5:18 PM Dictation Location: [place] [address] Transcribed By: [facility] 03/11/231717 Dictated By: Epifanio Jordan II, MD 03/11/231714 Signed By: 03/11/231717 Normal [facility] pH Auto test strip (U)Ordere d By: PROVIDER TEMP on 03-11-2023 pH (U) 5.5 [pH] 5.0-9.0 [facility] MG MAMM RT DIAG FUon 023 MG MAMM RT DIAG FU Patient: EDMUND DUONG Exam Date: 12/25/2022 : 1990 Gender:F Ordering : DR HEMAL PARTIDA . Admission #: [id number] Family : Order #: [id number] CLICK HERE TO VIEW EXAM RADIOLOGY REPORT PROCEDURE: MAMMOGRAM RIGHT DIAGNOSTIC DIGITAL FOLLOW UP, 12/25/2022, 13:50 ULTRASOUND BREAST RIGHT LIMITED, 12/25/2022, 14:04 COMPARISON: MG MAMM SCREEN 3D HONEY CAD, 12/12/2022. MG MAMM SCREEN 3D HONEY CAD, 12/11/2021. MG MAMM HONEY DIAG W CAD, 07/30/2019. MG MAMM HONEY SCRN W CAD DIG, 01/06/2014. INDICATIONS: Abnormal findings on diagnostic imaging of breast Calculator Name NCI Breast Cancer Risk Assessment Tool 5 Year Breast Cancer Risk Not Applicable. Lifetime Breast Cancer Risk Not Applicable. Personal Breast Cancer No Personal Ovarian Cancer No Treatments None Family Cancers Mother with breast cancer at age 37. LOCATION: [facility] BREAST COMPOSITION: Heterogeneously dense,which may obscure small masses. FINDINGS: DIAGNOSTIC CATEGORY 3--PROBABLY BENIGN FINDING. THE FOLLOWING FINDING(S) HAS A HIGH PROBABILITY OF A BENIGN ETIOLOGY: RIGHT BREAST: Spot magnification views demonstrate persistence of a 5 mm mass versus cyst within the lower-inner quadrant, mid breast. Ultrasound evaluation demonstrates a 4 x 4 x 2 mm anechoic, but slightly irregular structure at the 6 o'clock position 2.9 cm from the nipple. No internal blood flow. This may represent a benign cyst. As a precautionary measure follow-up right breast mammography and right breast ultrasound in 6 months is recommended to document stability. RECOMMENDATIONS: SHORT TERM FOLLOW-UP DIAGNOSTIC MAMMOGRAM RIGHT BREAST IN 6 MONTHS. SHORT TERM FOLLOW-UP ULTRASOUND RIGHT BREAST IN 6 MONTHS. PLEASE NOTE: A NORMAL MAMMOGRAM DOES NOT EXCLUDE THE POSSIBILITY OF BREAST CANCER. A CLINICALLY SUSPICIOUS PALPABLE LUMP SHOULD BE BIOPSIED. Dictated by: Irineo Landin M.D. on 12/25/2022 at 14:24 Approved by: Irineo Landin M.D. on 12/25/2022 at 14:29 Normal [facility] US BREAST RIGHT LIMITEDon US BREAST RIGHT LIMITED Patient: EDMUND DUONG Exam Date: 12/25/2022 : 1990 Gender:F Ordering : DR HEMAL PARTIDA . Admission #: [id number] Family : Order #: [id number] CLICK HERE TO VIEW EXAM RADIOLOGY REPORT PROCEDURE: MAMMOGRAM RIGHT DIAGNOSTIC DIGITAL FOLLOW UP, 12/25/2022, 13:50 ULTRASOUND BREAST RIGHT LIMITED, 12/25/2022, 14:04 COMPARISON: MG MAMM SCREEN 3D HONEY CAD, 12/12/2022. MG MAMM SCREEN 3D HONEY CAD, 12/11/2021. MG MAMM HONEY DIAG W CAD, 07/30/2019. MG MAMM HONEY SCRN W CAD DIG, 01/06/2014. INDICATIONS: Abnormal findings on diagnostic imaging of breast Calculator Name NCI Breast Cancer Risk Assessment Tool 5 Year Breast Cancer Risk Not Applicable. Lifetime Breast Cancer Risk Not Applicable. Personal Breast Cancer No Personal Ovarian Cancer No Treatments None Family Cancers Mother with breast cancer at age 37. LOCATION: [facility] BREAST COMPOSITION: Heterogeneously dense,which may obscure small masses. FINDINGS: DIAGNOSTIC CATEGORY 3--PROBABLY BENIGN FINDING. THE FOLLOWING FINDING(S) HAS A HIGH PROBABILITY OF A BENIGN ETIOLOGY: RIGHT BREAST: Spot magnification views demonstrate persistence of a 5 mm mass versus cyst within the lower-inner quadrant, mid breast. Ultrasound evaluation demonstrates a 4 x 4 x 2 mm anechoic, but slightly irregular structure at the 6 o'clock position 2.9 cm from the nipple. No internal blood flow. This may represent a benign cyst. As a precautionary measure follow-up right breast mammography and right breast ultrasound in 6 months is recommended to document stability. RECOMMENDATIONS: SHORT TERM FOLLOW-UP DIAGNOSTIC MAMMOGRAM RIGHT BREAST IN 6 MONTHS. SHORT TERM FOLLOW-UP ULTRASOUND RIGHT BREAST IN 6 MONTHS. PLEASE NOTE: A NORMAL MAMMOGRAM DOES NOT EXCLUDE THE POSSIBILITY OF BREAST CANCER. A CLINICALLY SUSPICIOUS PALPABLE LUMP SHOULD BE BIOPSIED. Dictated by: Irineo Landin M.D. on 12/25/2022 at 14:24 Approved by: Irineo Landin M.D. on 12/25/2022 at 14:29 Normal [facility] MAMM SCREEN 3D HONEY CADon 12-12-2022 MAMM SCREEN 3D HONEY CAD Patient: EDMUND DUONG Exam Date: 12/12/2022 : 1990 Gender:F Ordering : DR KARI GIMENEZ . Admission #: [id number] Family : Order #: [id number] CLICK HERE TO VIEW EXAM RADIOLOGY REPORT PROCEDURE: MAMMOGRAM SCREENING 3D BILATERAL CAD COMPARISON: MG MAMM HONEY DIAG W CAD, 07/30/2019. MG MAMM SCREEN 3D HONEY CAD, 12/11/2021. INDICATIONS: Screening mammography Calculator Name NCI Breast Cancer Risk Assessment Tool 5 Year Breast Cancer Risk Not Applicable. Lifetime Breast Cancer Risk Not Applicable. Personal Breast Cancer No Personal Ovarian Cancer No Treatments None Family Cancers Mother with breast cancer at age 37. LOCATION: [facility] BREAST COMPOSITION: Heterogeneously dense,which may obscure small masses. FINDINGS: DIAGNOSTIC CATEGORY 0--INCOMPLETE: NEED ADDITIONAL IMAGING EVALUATION. Scattered benign-appearing calcifications are present. Scattered benign-appearing lymph nodes are present. RIGHT BREAST: 5.3 mm circumscribed nodule 6 o'clock, mid breast. Spot compression and ultrasound follow-up recommended LEFT BREAST: No significant suspicious finding. RECOMMENDATIONS: ADDITIONAL MAMMOGRAPHIC VIEWS REQUIRED: RIGHT BREAST - spot compression views ULTRASOUND: RIGHT BREAST PLEASE NOTE: A NORMAL MAMMOGRAM DOES NOT EXCLUDE THE POSSIBILITY OF BREAST CANCER. A CLINICALLY SUSPICIOUS PALPABLE LUMP SHOULD BE BIOPSIED. Dictated by: Jennifer Donis MD on 12/13/2022 at 07:30 Approved by: Jennifer Donis MD on 12/13/2022 at 07:33 [facility] COVID-19 Antigenon 2 COVID-19 Antigen Healthcare Worker?: N Reference Range: Negative Negative results, from patients with symptom onset beyond five days, should be treated as presumptive and confirmation with a molecular assay, if necessary, for patient management, may be performed. Negative results do not rule out COVID-19 and should not be used as the sole basis for treatment or patient management decisions, including infection control decisions. Negative results should be considered in the context of a patient's recent exposures, history and the presence of clinical signs and symptoms consistent with COVID-19. The Simon SARS Antigen VIJAY does not differentiate between SARS-CoV and SARS-CoV-2. This test was developed and its performance characteristic determined by [employer] and validated at [facility]. This test has not been FDA cleared or approved. This test has been authorized by FDA under an Emergency Use Authorization (EUA). This test has been validated in accordance with the FDA's Guidance Document (Policy for Diagnostics Testing in Laboratories Certified to Perform High Complexity Testing under CLIA prior to Emergency Use Authorization for Coronavirus Disease-2019 during the Public Health Emergency) issued on February 03, 2020. This test is only authorized for the duration of time the declaration that circumstances exist justifying the authorization of the emergency use of in vitro diagnostic tests for detection of SARS-CoV-2 virus and/or diagnosis of COVID-19 infection under section 564(b)(1) of the Act, 21 U.S.C. 360bbb-3(b)(1), unless the authorization is terminated or revoked sooner. SARS-CoV+SARS-CoV-2 (COVID-19) Ag [Presence] in Respiratory specimen by Rapid immunoassay Negative for SARS Antigen by VIJAY PERFORMED BY: [facility] [place] [address] PATHOLOGIST INTERMEDIATE FRAME TENDER SHAUN PARHAM M.D. [facility] Comment on above: Performed By: #### S OFIANEG, COVID-19 SIMON #### [facility] [address] COVID-19 SOFIAOrdered By: Sparkle Pereira on 10-31-2022 SARS-CoV+SARS-CoV-2 (COVID-19) Ag IA.rapid Ql (Resp) Negative Negative [facility] Comment on above: This is a duplicate Simon SARS Antigen (VIJAY) result to be used for statistical tracking purpose only. No Panel InformationOrdered By: Orlando Pereira on 10-31-2022 SARS Antigen (LFIA) [facility] Simon Ag Negativeon 10-31-20 Simon Ag Negative Negative Normal Negative [facility] Comment on above: Result Comment: This is a duplicate Simon SARS Antigen (VIJAY) result to be used for statistical tracking purpose only. PERFORMED BY: [facility] [address] [place] [address] PATHOLOGIST INTERMEDIATE FRAME TENDER SHAUN PARHAM M.D. Performed By: #### S OFIANEG, COVID-19 SIMON #### [facility] [address] US THYROIDon 10-15-2022 US THYROID EXAMINATION: US THYROID HISTORY: Fatigue COMPARISON: No relevant comparison available. TECHNIQUE: Sonographic images of the thyroid gland were obtained. FINDINGS: The right thyroid lobe is normal in size, contour and echotexture measuring 6.0 x 1.7 x 1.5 cm. No focal nodules. The thyroid isthmus measures 5.4 mm, thickened. No focal nodule The left thyroid lobe is normal in size, contour and echotexture measuring 5.9 x 1.9 x 1.6 cm. No focal nodules. IMPRESSION: No focal nodules Electronically authenticated by: JENNIFER DONIS Date: 2022-10-15 07:07 Normal [facility] US EXT NON VASC LIMITED RTon 06-10-2022 US EXT NON VASC LIMITED RT EXAMINATION: US EXT NON VASC LIMITED RT HISTORY: Contusion of right thigh COMPARISON: No relevant comparison available. FINDINGS: Identified in the area of the patient's palpable mass and trauma is a complex cystic and solid structure measuring 6.2 x 4.6 x 0.7 cm. This lesion is oval in shape, well-circumscribed, with a wall measuring up to 1 mm. Scattered areas of soft tissue echogenicity are identified centrally the largest measuring 10.6 x 6.1 mm in size. These areas do not definitively demonstrate flow. IMPRESSION: Complex cystic and solid lesion in the right thigh. In light of the patient's trauma I favor a hematoma. 6-8 week follow-up recommended to document resolution of the soft tissue components. Electronically authenticated by: JENNIFER DONIS Date: 2022-06-10 07:41 Normal [facility] XR ANKLE RT MIN 3 VIEWSon XR ANKLE RT MIN 3 VIEWS EXAM: XR ANKLE R T MIN 3 VIEWS, XR TIB_FIB RT 2V HISTORY: Pain of right ankle joint COMPARISON: None. TECHNIQUE: Frontal, lateral, oblique views of the right ankle. Frontal and lateral views the right tib-fib. FINDINGS: Mineralization: Within normal limits. Bones: No acute fractures or dislocations. Ankle mortise intact. Moderate-sized plantar calcaneal spur. Joints: Mild patellofemoral compartment osteophytosis.. No effusion. Soft Tissues: Unremarkable. IMPRESSION: No acute osseous abnormality. Electronically authenticated by: LD BLAS Date: 2022-04-28 14:30 Normal [facility] XR knee RT 4V*on 02-18-2022 XR knee RT 4V* [facility] [employer] Other XR knee RT 4V* [facility] [employer] Other XR knee RT 4V* [address] [place] [address] [employer] Other XR knee RT 4V* [place] [address] No rt [employer] Other XR knee RT 4V* XRay Report [email or web address] Other XR knee RT 4V* Signed [employer] Other XR knee RT 4V* Patient: Edmund Duong MR#: [id number] [facility] [employer] Other XR knee RT 4V* : 1990 Acct:[id number] [employer] Other XR knee RT 4V* Age/Sex: 32 / F ADM Date: 02/18/22 [employer] Other XR knee RT 4V* Loc: [id number] Room: Type: [facility] [employer] Other XR knee RT 4V* Attending Dr: Maxime Hardy INTERLOCKING MACHINE OPERATOR-C [employer] Other XR knee RT 4V* Ordering Provider: Maxime Hardy CLINICAL EDUCATION CONSULTANT-C [employer] Other XR knee RT 4V* Date of Service: 02/18/22 [employer] Other XR knee RT 4V* XR/XR knee RT 4V*: PAIN M25.561 [employer] Other XR knee RT 4V* Copies to: Maxime Hardy CLINICAL EDUCATION CONSULTANT-C [employer] Other XR knee RT 4V* RIGHT KNEE - 4 views [employer] Other XR knee RT 4V* CLINICAL HISTORY: Patient was doing squats a couple days ago and felt pain at the right knee [employer] Other XR knee RT 4V* laterally. [employer] Other XR knee RT 4V* COMPARISON: None [facility] [employer] Other XR knee RT 4V* AP, lateral and both oblique views were obtained. There is no evidence of fracture or dislocation. [employer] Other XR knee RT 4V* No disproportionate joint space narrowing is present there is minimal marginal spurring, greatest at [employer] Other XR knee RT 4V* the posterior patella. No significant knee effusion or focal soft tissue swelling is identified. [employer] Other XR knee RT 4V* XR/XR knee RT 4V* [employer] Other XR knee RT 4V* IMPRESSION: [email or web address] Other XR knee RT 4V* NO ACUTE BONY FINDINGS. [employer] Other XR knee RT 4V* Impression dictated by: Kelle Gomes M.D.02/18/2022 12:32 PM [employer] Other XR knee RT 4V* Dictation Location: [place] [address] [employer] Other XR knee RT 4V* Transcribed By: KASSY 02/18/22 [facility] [employer] Other XR knee RT 4V* Dictated By: Kelle Gomes MD 02/18/22 [facility] [employer] Other XR knee RT 4V* Signed By: [employer] Other XR knee RT 4V* 02/18/22 [facility] [employer] Other Vital Signs Date Time Vital Sign Value Performing Clinician Facility 09-20-2024 15:19-0500 Body height 171.7 cm Kelle Reynolds PA Work Phone: [facility] [employer] 09-20-2024 15:19-0500 Body mass index (BMI) [Ratio] 27.91 kg/m2 Kelle Reynolds PA Work Phone: [facility] 09-20-2024 15:19-0500 Body temperature 97.3 [degF] Kelle Reynolds PA Work Phone: [facility] 09-20-2024 15:19-0500 Body weight 82.28 kg Kelle Reynolds PA Work Phone: [facility] 09-20-2024 15:19-0500 Diastolic blood pressure 78 mm[Hg] Kelle Reynolds PA Work Phone: [facility] 09-20-2024 15:19-0500 Heart rate 90 /min Kelle Hemmer PA Work Phone: [facility] 09-20-2024 15:19-0500 Respiratory rate 16 /min Kelle Hemmer PA Work Phone: [facility] 09-20-2024 15:19-0500 SaO2% (BldA) [Mass fraction] 92 % Kelle Hemmer PA Work Phone: [facility] 09-20-2024 15:19-0500 Systolic blood pressure 117 mm[Hg] Kelle Hemmer PA Work Phone: [facility] 03-11-2023 17:05-0400 Diastolic blood pressure 64 mm[Hg] MD Fatemeh Neil Work Phone: [facility] 03-11-2023 17:05-0400 Heart rate 68 /min MD Fatemeh Neil Work Phone: [facility] 03-11-2023 17:05-0400 Respiratory rate 18 /min MD Fatemeh Neil Work Phone: [facility] 03-11-2023 17:05-0400 SaO2% (BldA) [Mass fraction] 97 % MD Fatemeh Neil Work Phone: [facility] 03-11-2023 17:05-0400 Systolic blood pressure 108 mm[Hg] MD Fatemeh Neil Work Phone: [facility] 03-11-2023 14:59-0400 Body temperature 97.8 [degF] MD Fatemeh Neil Work Phone: [facility] 03-11-2023 13:09-0400 Body height 170.18 cm MD Fatemeh Neil Work Phone: [facility] 03-11-2023 13:09-0400 Body weight 82.9 kg MD Fatemeh Neil Work Phone: [facility] 02-18-2022 12:20-0400 Body height 170.18 cm Maxime Hardy Other [facility] [employer] Other 02-18-2022 12:20-0400 Body mass index (BMI) [Ratio] 28.97 kg/m2 Maxime Hardy Other [facility] Other 02-18-2022 12:20-0400 Body temperature 98.7 [degF] Maxime Hardy Other [facility] Other 02-18-2022 12:20-0400 Body weight 83.92 kg Maxime Hardy Other [facility] Other 02-18-2022 12:20-0400 Respiratory rate 18 /min Maxime Hardy Other [facility] Other 02-18-2022 12:20-0400 SaO2% (BldA) [Mass fraction] 98 % Maxime Hardy Other [facility] [employer] Other 12-01-2021 12:00-0500 Body height 170.18 cm Roshni Dow Other [facility] [employer] Other 12-01-2021 12:00-0500 Body mass index (BMI) [Ratio] 31.48 kg/m2 Roshni Victor M Other [facility] Other 12-01-2021 12:00-0500 Body temperature 97.8 [degF] Roshni Dow Other [facility] [employer] Other 12-01-2021 12:00-0500 Body weight 91.17 kg Roshni Victor M Other [facility] [employer] Other 12-01-2021 12:00-0500 Diastolic blood pressure 74 mm[Hg] Roshni Dow Other [facility] [employer] Other 12-01-2021 12:00-0500 Respiratory rate 18 /min Roshni Dow Other [facility] Other 12-01-2021 12:00-0500 SaO2% (BldA) [Mass fraction] 99 % Roshni Dow Other [facility] [employer] Other 12-01-2021 12:00-0500 Systolic blood pressure 146 mm[Hg] Roshni Dow Other [employer] Other Encounters Encounter Date Encounter Type Care Provider Facility Start: 09-20-2024 End: 09-20-2024 ambulatory KELLE REYNOLDS Not Available Start: 09-20-2024 End: 09-20-2024 Office outpatient visit 15 minutes Kelle Reynolds PA Work Phone: [facility] Comment on above: Acute bronchitis, un specified organism (Primary Dx) Start: 01-01-2024 End: 2024 ambulatory Chriss CORONA Facility:[facility] Start: 03-11-2023 End: 03-11-2023 Emergency department patient visit Fatemeh Neil Facility:[facility] Start: 03-11-2023 End: 03-11-2023 Emergency department patient visit MD Fatemeh Neil Work Phone: [facility] Work Phone: Start: 12-25-2022 End: 12-26-[address] FATEMEH NEIL Facility:[facility] Start: 12-12-2022 End: 12-13-[address] FATEMEH NEIL Facility:[facility] Start: 11-17-2022 End: 11-17-[address] MONICA FREITAS Facility:[facility] Start: 10-31-2022 End: 10-31-2022 ambulatory Orlando Pereira Facility:[facility] Start: 10-31-2022 End: 10-31-2022 ambulatory MD Fatemeh Neil Work Phone: [facility] Work Phone: Start: 10-31-2022 End: 10-31-2022 Patient encounter procedure MD Fatemeh Neil Work Phone: [facility] Work Phone: Start: 10-18-2022 End: 10-18-2022 ambulatory Orlando Pereira Other [facility] [employer] Other Start: 10-18-2022 Telephone encounter Orlando SMITH [employer] Start: 10-14-2022 End: 10-15-[address] FATEMEH NEIL Facility:[facility] Start: 06-07-2022 End: 06-08-[address] FATEMEH NEIL Facility:[facility] Start: 05-30-[address] FATEMEH NEIL Facility: [facility] Start: 04-28-2022 End: 04-28-[address] FATEMEH NEIL Facility:[facility] Start: 03-11-2022 End: 03-11-2022 ambulatory Maxime Hardy Other [facility] [employer] Other Start: 03-11-2022 Telephone encounter [facility]ime [facility] Start: 02-18-2022 End: 02-18-2022 ambulatory Maxime Hardy Other [facility] [employer] Other Start: 02-18-2022 Office outpatient vi sit 25 minutes Maxime Hardy [facility] [address] [address] Start: 12-01-2021 End: 12-01-2021 ambulatory Roshni Dow Other [employer] Other Start: 12-01-2021 Office outpatient ne w 20 minutes Roshni Dow [facility] Procedures Date Procedure Procedure Detail Performing Clinician Start: 03-11-2023 Diagnostic radiograp hy of abdomen MD Fatemeh Neil Work Phone: Start: 10-31-2022 SARS Antigen (LFIA) MD Fatemeh Neil Work Phone: Plan of Treatment Date Care Activity Detail Author Start: 07-04-2024 Influenza vaccination Influenza Vacc ine (#1) [facility] Start: 03-11-2023 CT of abdomen and pe lvis without contrast CT abdomen pelvis wo con [facility] Start: 01-01-2018 Screening for malign ant neoplasm of cervix [facility] Start: 01-01-2009 Screening for malign ant neoplasm of cervix Pap Smear [facility] Patient Education Abdominal Pain , Adult ED [facility] Work Phone: Patient referral [facility] Work Phone: Payers Date Payer Category Payer [facility] [id number] 2022 Self-pay [id number] 2017 Unknown 1988 Unknown [id number]. 593 1988 Unknown [id number] [id number]. 593 1988 Unknown [id number] [id number]. 593 1988 Unknown [id number] [id number]. 593 1988 Unknown [id number] 2.16.840.1.522780.3.579.2. 593 1988 Unknown [id number] 2.16.840.1.762709.3.579.2. 593 1988 Unknown [id number] 2.16.840.1.845150.3.579.2. 593 1988 Unknown [id number] 2.16.840.1.042144.3.579.2. 727 1988 Unknown [id number] 2.16.840.1.434964.3.579.2. 1259 1959 Blue Cross Blue Shield [id number] 1959 Unknown [id number] Unknown [facility] [id number] Unknown [id number] [id number]. 531 Unknown [id number] [id number]. 531 Social History Date Type Detail Facility Start: 09-20-2024 Sex Assigned At N [facility] Other Start: 07-27-2021 End: 03-11-2023 Tobacco smoking status NHIS Smoker (finding) [facility] Start: 1990 Sex Assigned At Female F [facility] Start: 09-20-2024 [facility] History of tobacco use Cigarette Smoker [facility] Start: 09-20-2024 Tobacco use and exposure User of smokeless tobacco [facility] Start: 09-20-2024 Alcoholic beverage intake Lifetime non-drinker (finding) [facility] Start: 09-20-2024 History of Social function [facility] Start: 1990 Sex assigned at Not on file N [facility] History of Present illness Narrative 09-20-2024 OLIVIA Wilcox - 09/20/2024 3:00 PM EST Note Date & Type Note Facility 09-20-2024 History of Presen t illness Narrative Images from the original note were not included. Subjective Patient ID: Edmund Duong is a 34 y.o. female who presents for cold symptoms. Edmund is present today for evaluation of cold symptoms. Admits cough dry, hoarseness, chest sore from coughing, wheezing, SOB. Went to [facility] ER on 09/16/24 Dx. URI Rx'd Albuterol inhaler which did help some. States symptoms started with sore throat on 09/14, on 09/15 her chest started burning. States she went to the ER because she was fighting to breathe. States feels like she is getting out of breath very easily. Did take Mucinex once before she went to the ER. Current Outpatient Medications on File Prior to Visit Medication Sig Dispense Refill Buprenorphine HCl-Naloxone HCl (Suboxone) 8-[address] 1 Film under the tongue [DISCONTINUED] albuterol HFA 90 mcg/act inhaler Inhale 2 puffs every 4 (four) hours if needed for wheezing or shortness of breath [DISCONTINUED] citalopram (CeleXA) 20 MG tablet Take 20 mg by mouth Daily [DISCONTINUED] traZODone (Desyrel) 50 MG tablet TAKE 1 TABLET BY MOUTH EVERY DAY AT BEDTIME NEEDED 90 tablet 0 No current facility-administered medications on file prior to visit. I have reviewed and reconciled the history and medication list with the patient today. Allergies Allergen Reactions Sulfamethoxazole-Trimethoprim Anaphylaxis Sulfamethoxazole Other Reaction(s): Swelling of Lip/Tongue/Throat Trimethoprim Other Reaction(s): Swelling of Lip/Tongue/Throat Social History Tobacco Use Smoking status: Every Day Types: Cigarettes Smokeless tobacco: Current Vaping Use Vaping status: Every Day Substances: Nicotine Devices: Disposable Substance Use Topics Alcohol use: Never Drug use: Never Family History Problem Relation Name Age of Onset Breast cancer Mother Hypertension Father Past Medical History: Diagnosis Date COVID-19 Current smoker Goiter (CMS/HCC) Hyperparathyroidism (CMS/HCC) Insomnia Past Surgical History: Procedure Laterality Date NECK SURGERY excison goiter TUBAL LIGATION Visit Vitals BP 117/78 Pulse 90 Temp 97.3 F Resp 16 Ht 5' 7.6 Wt 181 lb 6.4 oz SpO2 92% BMI 27.91 kg/m Smoking Status Every Day BSA 1.98 m Review of Systems Constitutional: Negative for chills, fatigue and fever. HENT: Hoarseness Respiratory: Positive for cough, shortness of breath and wheezing. Cardiovascular: Negative for chest pain, palpitations and leg swelling. Gastrointestinal: Negative for abdominal pain, constipation, diarrhea, nausea and vomiting. Skin: Negative for rash. Objective Physical Exam Constitutional: General: She is not in acute distress. Appearance: She is well-developed. She is ill-appearing. HENT: Head: Normocephalic and atraumatic. Right Ear: Ear canal normal. Tympanic membrane is injected. Left Ear: Ear canal normal. Tympanic membrane is injected. Nose: Right Turbinates: Not swollen. Left Turbinates: Not swollen. Comments: Turbinates with erythema Mouth/Throat: Mouth: Mucous membranes are moist. Pharynx: Posterior oropharyngeal erythema present. Eyes: General: No scleral icterus. Conjunctiva/sclera: Conjunctivae normal. Cardiovascular: Rate and Rhythm: Normal rate and regular rhythm. Heart sounds: Normal heart sounds. No murmur heard. Pulmonary: Effort: Pulmonary effort is normal. No respiratory distress. Breath sounds: Wheezing (Diffuse) and rhonchi (Scattered) present. No rales. Comments: Frequent harsh cough Lymphadenopathy: Cervical: Cervical adenopathy (Bilat Anterior Cervical) present. Skin: General: Skin is warm and dry. Neurological: General: No focal deficit present. Mental Status: She is alert and oriented to person, place, and time. Psychiatric: Mood and Affect: Mood normal. Behavior: Behavior normal. Assessment/Plan Diagnoses and all orders for this visit: Acute bronchitis, unspecified organism - albuterol HFA 90 mcg/act inhaler; Inhale 2 puffs every 4 (four) hours if needed for wheezing or shortness of breath - azithromycin (Zithromax) 250 MG tablet; Take 2 tablets (500 mg) by mouth Daily for 1 day, THEN 1 tablet (250 mg) Daily for 4 days. - predniSONE (Deltasone) 10 MG tablet; Take 1 tablet (10 mg) by mouth 3 (three) times a day for 3 days, THEN 1 tablet (10 mg) 2 (two) times a day for 3 days, THEN 1 tablet (10 mg) Daily for 3 days. Start the above medications as directed. Advised of potential side effects of the steroid. Patient is to take the steroid with food. Can take OTC Mucinex as needed for symptoms. Increase water intake, get plenty of rest. Can take Tylenol prn for any discomfort or fever. No other anti-inflammatories while on steroid. Cough into elbow. Wash hands often. Advised patient that cough can linger with bronchitis. Follow up in our office if no improvement in one week. Note for work provided for today and tomorrow. Follow up for Wellness, Fasting Labs. documented in this encounter [facility] Evaluation note 02-18-2022 Note Date & Type Note Facility 02-18-2022 Evaluation note Encounter Date Diagnosis Assessment Notes Feb, Acute pain of right knee (ICD-10 - M25.561) Feb, Sprain of right knee, unspecified ligament, initial encounter (ICD-10 - S83.91XA) Ice the knee for 20 minutes every other hour as needed. Rest the knee. Take medications as prescribed. Keep your knee in the geovanny wrap daily. You may take tylenol 1000mg every 6-8 hours as needed. Do not exceed 3000mg daily however. Follow up with Dr. Jason as directed. I will have my manufacturing scheduler call you to make an appointment with him. I Personally reviewed all of the x-ray imaging. Even no there is no direct trauma to the patient's knee, we will order an x-ray to screen for any potential avulsion fractures or for large intra-articular effusions in the knee. There are no appreciable fractures or large effusions on the imaging.we will treat the patient conservatively with RICE therapy. Based on my clinical exam, patient most likely sprained her right lateral collateral ligament or possibly her right meniscus. Fortunately there is no ligament laxity and I do not believe she completely tore any of the ligaments in the knee. Will prescribe her naproxen to take as prescribed. She is also printed out knee stretching exercises to complete as directed. Will also apply an geovanny wrap for the knee. We will place a referral order to have her follow-up with one of my colleagues in sports medicine. She understands and agrees with the plan. [facility] Other Evaluation note 12-01-2021 Note Date & Type Note Facility 12-01-2021 Evaluation note Encounter Date Diagnosis Assessment Notes Nov, Tooth infection (ICD-10 - K04.7) Take medications as directed.Highly encourage patient to contact dentist AYAN for further treatment of infection. Do not take OTC medications like ibuprofen with prescriptions [facility] Other Evaluation note Note Date & Type Note Facility Evaluation note No Information [facility] Other Evaluation note Note Date & Type Note Facility Evaluation note No assessment information availa ble [facility] Work Phone: Evaluation note Note Date & Type Note Facility Evaluation note Diagnosis Acute bronchitis, unspecified organism- Primary documented in this encounter [facility] History general Narrative - Reported Note Date & Type Note Facility History general Narrative - Reported Type Surgical History cyst removed from neck Hospitalization History see surgical hx. [facility] Other Hospital Discharge instructions Note Date & Type Note Facility Hospital Discharge instructions Additional Instructions Follow-up with your primary care doctor Return to ED if develop worsening symptoms or concerns [facility] Work Phone: Reason for Referral Reason *Waiting for appt Needs to follow up with Dr. Jason for R. knee sprain. Diagnosis 1 Sprain of right knee , unspecified ligament, initial encounter (S83.91XA) Referral Organization [facility] Urgent Care elizabeth Referring Provider First Name Maxime Referring Provider Last Name [place] Referring Provider Specialty Nurse Eva cintron Referred Organization [facility] Family Jennifer Cabrera Referred Provider Chris Jason Referred Address [address] [place] [address]. [place],[phone] Referred Provider Specialty Sport Medici ne Referral Priority Routine General Notes Fore, Elsa M 022 01:30:30 PM >Received and sent P2P Chief Complaint and Reason for Visit Chief Complaint Dysphagia Chief Complaint abd pain Advance Directives No Advanced Directives Records Found Advance Directive Response Recorded Date/ Time Advance Directives No July 1:10pm Advance Directive Response Recorded Date/ Time Advance Directives No July 2:10pm Family History No Family History Records Found Relationship Condition Age at Onset Recorded Date/T desiree Not Specified No pertinent family history Unknown Not Specified Malignant neoplasm of breast Unknown Summary Purpose Additional Source Comments REASON FOR VISIT (unrecogniz ed section and content) TOOTH PAINRT KNEE PAINSports Medicine ReferralMAIL PPW Care Teams (unrecognized sec tion and content) Team Status: Inactive Member Role Status Dates Fatemeh Neil MD Primary Care Provider Active Orlando Pereira MD Attending Provider Active Team Status: Active Member Role Status Dates Fatemeh Neil MD Primary Care Provider Active Team Status: Inactive Member Role Status Dates Fatemeh Neil MD Primary Care Provider Active Edmar Khan DO Emergency Provider Active Music Instructor Relationship Specialty Start Date End Date Fatemeh Neil MD [address] [facility] [address] [place] [address] PCP - General Family Medicine 03/11/23 Goals (unrecognized section and content) Goals may be documented in a n alternate section INFORMATION SOURCE (unrecogn ized section and content) DATE CREATED AUTHOR 03/12/2023 [facility] DATE CREATED AUTHOR AUTHOR'S ORGANIZ ATION 03/13/2023 [facility] DATE CREATED AUTHOR AUTHOR'S ORGANIZ ATION 01/04/2024 [facility] DATE CREATED AUTHOR AUTHOR'S ORGANIZ ATION 09/22/2024 [facility] FOR RECORDS PERTAINING TO PATIENTS WHO ARE OR HAVE BEEN ENROLLED IN A CHEMICAL DEPENDENCY/SUBSTANCEABUSE PROGRAM, SOME INFORMATION MAY BE OMITTED. This clinical summary was aggregated from multiple sources. Caution should be exercised in using it in the provision of clinical care. This summary normalizes information from multiple sources, and as a consequence, information in this document may materially change the coding, format and clinical context of patient data. In addition, data may be omitted in some cases. CLINICAL DECISIONS SHOULD BE BASED ON THE PRIMARY CLINICAL RECORDS. [facility]. provides no warranty or guarantee of the accuracy or completeness of information in this document.
--- NOTE | 2024-12-02 19:51 | ECG_ITS ---
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
--- NOTE | 2024-12-02 19:53 | ED_ITS ---
HPI - Arrhythmia/Palpitations General Chief Complaint: Arrhythmia/Palpitations Stated Complaint: HEART PALPITATIONS Time Seen by Provider: 12/02/24 19:41 Source: patient Mode of arrival: walk-in History of Present Illness HPI narrative: Patient is a 34-year-old female who presents to the emergency department for palpitations that have been present for the last 4 days. Patient has no major medical problems. She denies any significant history of palpitations in the past. She has a sensation that her heart is fluttering and skipping. She has had no fevers, cough, congestion, vomiting or diarrhea. She states she drinks coffee daily but drinks noncaffeinated soda. She has no concern for . No recent illness. She has no chest pain. She feels short of breath. No peripheral edema. Related Data Previous Rx's ?Medication ?Instructions ?Recorded albuterol sulfate 90 mcg/actuation 2 inh inhalation Q4H PRN shortness 09/16/24 aerosol inhaler of breath or wheezing #8.5 grams Allergies Allergy/AdvReac Type Severity Reaction Status Date / Time amoxicillin (From Augmentin) Allergy Mild Anaphylaxis Verified 09/16/24 00:49 clavulanic acid (From Allergy Mild Anaphylaxis Verified 09/16/24 00:49 Augmentin) Review of Systems ROS Constitutional Denies: fever or chills Ears, nose, mouth, and throat Denies: throat pain or nasal congestion Cardiovascular Reports: palpitations; Denies: chest pain Respiratory Reports: shortness of breath; Denies: cough Integumentary/Breast Denies: rash Neurological Denies: headache, numbness in extremities or weakness in extremities Hematologic/Lymphatic Denies: easy bruising or easy bleeding PFSH [facility] Social History Little interest or pleasure in doing things: not at all Feeling down, depressed, or hopeless: not at all Exam Narrative Exam Narrative: Gen.: Awake, alert, in no distress, anxious Head: Normocephalic, atraumatic ENT: Moist mucous membranes Respiratory: No respiratory distress, lungs clear bilaterally Cardio: Regular rate and rhythm Gastrointestinal: Abdomen is soft, nondistended and nontender to palpation Extremities: Moves extremities equally, no pedal edema Psych: Normal mood and affect Neuro: No focal neuro deficit Skin: Warm, dry, intact Constitutional Vital Signs, click to edit/add: Last Vital Signs Temp 98.0 F 12/02/24 19:42 Pulse 84 12/02/24 20:10 Resp 16 12/02/24 20:10 BP 153/74 H 12/02/24 19:45 Pulse Ox 100 12/02/24 19:50 O2 Del Method Room Air 12/02/24 19:42 Course Vital Signs Vital signs: Vital Signs Temperature 98.0 F 12/02/24 19:42 Pulse Rate 102 H 12/02/24 19:42 Respiratory Rate 22 H 12/02/24 19:42 Blood Pressure 153/74 H 12/02/24 19:42 Pulse Oximetry 100 12/02/24 19:42 Oxygen Delivery Method Room Air 12/02/24 19:42 Temperature 98.0 F 12/02/24 19:42 Pulse Rate 84 12/02/24 20:10 Respiratory Rate 16 12/02/24 20:10 Blood Pressure 153/74 H 12/02/24 19:45 Pulse Oximetry 100 12/02/24 19:50 Oxygen Delivery Method Room Air 12/02/24 19:42 MDM - Arrhythmia/Palpitations MDM Narrative Medical decision making narrative: Multiple attempts were made by nursing staff to establish an IV for the patient, we are unable to obtain IV access. Labs were able to be obtained, patient was found on cardiac monitoring to have an occasional PVC but had otherwise benign cardiac monitoring. Chest x-ray and labs are obtained. Patient with no complaints of pain in the ER. 2104: Labs are pending and case is turned over to attending physician at this time. Cardiac monitoring is stable SHARED APC VISIT, PHYSICIAN ATTESTATION: [id number] I performed a substantive part of the MDM during the patient?s E/M visit. I personally evaluated and examined the patient. I personally made or approved the documented management plan and acknowledge its risk of complications. Her workup is negative and she has a follow-up appointment with her doctor on December 17. She has been having some PVCs and this correlates with her symptoms. We discussed the causes. Treatment diagnosis and follow-up were discussed with the patient. Differential Diagnosis Differential diagnosis: Likely palpitations, artial fibrillation and ventricular premature beats Medical Records Attestation: I reviewed the patient's medical records. Lab Data Attestation: I reviewed the patient's lab results. Labs: Lab Results 12/02/24 12/02/24 Range/Units 20:45 20:50 WBC 6.2 (4.0-11.0) 10^3/uL RBC 4.65 (4.20-5.40) 10^6/uL Hgb 13.8 (12.0-16.0) g/dL Hct 39.9 (36.0-48.0) % MCV 85.8 (81.0-99.0) fL MCH 29.7 (26.7-34.0) pg MCHC 34.6 (29.9-35.2) g/dL RDW 13.4 (11.0-15.0) % Plt Count 266 (150-450) 10^3/uL MPV 9.1 L (9.5-13.5) fL Neut % (Auto) 45.4 (43.0-75.0) % Lymph % (Auto) 36.7 (20.5-60.0) % [place] % (Auto) 8.7 (1.7-12.0) % Eos % (Auto) 7.4 H (0.9-7.0) % Baso % (Auto) 1.0 (0.2-2.0) % Neut # (Auto) 2.8 (1.4-6.5) 10^3/uL Lymph # (Auto) 2.3 (1.2-3.8) 10^3/uL [place] # (Auto) 0.5 (0.3-0.8) 10^3/uL Eos # (Auto) 0.5 (0.0-0.7) 10^3/uL Baso # (Auto) 0.1 (0.0-0.1) 10^3/uL Abs Immat Gran (auto) 0.05 H (0.00-0.03) 10^3/uL Imm/Tot Granulo (auto) 0.8 H (0.0-0.5) % PT 12.1 H (9.0-11.6) sec INR 1.16 Sodium 143 (136-145) mmol/L Potassium 3.5 (3.5-5.1) mmol/L Chloride 105 (98-107) mmol/L Carbon Dioxide 32.0 (21.0-32.0) mmol/L Anion Gap 9.5 BUN 10.0 (7.0-18.0) mg/dL Creatinine 0.89 (0.55-1.02) mg/dL Est GFR ( Amer) >60 (>=60 mL/min/1.73m^2) Est GFR (Non-Af Amer) >60 (>=60 mL/min/1.73m^2) BUN/Creatinine Ratio 11.2 Glucose 74 (74-106) mg/dL Calcium 9.2 (8.5-10.1) mg/dL Magnesium 2.0 (1.8-2.4) mg/dL Total Bilirubin 0.4 (0.2-1.0) mg/dL AST 18 (15-37) U/L ALT 21 (14-59) U/L Alkaline Phosphatase 65 (46-116) U/L Troponin I High Sens 5.2 (4.0-51.3) pg/mL NT-Pro-B Natriuret Pep 58.0 (<=450.0) pg/mL Total Protein 6.6 (6.4-8.2) g/dL Albumin 3.7 (3.4-5.0) g/dL Globulin 2.9 g/dL Albumin/Globulin Ratio 1.3 TSH 0.707 (0.358-3.740) uIU/mL Serum HCG, Qual Negative (NEGATIVE) Urine Color Lt. yellow (YELLOW) Urine Clarity Clear (CLEAR) Urine pH 5.5 (5.0-9.0) Ur Specific Jelm <=1.005 A (1.005-1.025) Urine Protein Negative (NEG/TRACE) mg/dL Urine Glucose (UA) Negative (NEGATIVE) mg/dL Urine Ketones Negative (NEGATIVE) mg/dL Urine Occult Blood Moderate A (NEGATIVE) Urine Nitrite Negative (NEGATIVE) Urine Bilirubin Negative (NEGATIVE) Urine Urobilinogen 0.2 (0.2-1.0) EU/dL Ur Leukocyte Esterase Negative (NEGATIVE) Urine RBC 0-2 (0-2) #/HPF Urine WBC None seen (NONE SEEN) #/HPF Ur Squamous Epith Cells Few A (NONE/RARE) #/LPF Urine Crystals None seen (None Seen) #/HPF Urine Bacteria Trace A (NONE SEEN) #/HPF Urine Casts None seen (NONE SEEN) #/LPF Urine Mucus None seen (NONE SEEN) Imaging Data Chest x-ray: My impression: No acute findings ECG Data Attestation: I personally reviewed and interpreted this ECG as follows: (Sinus rhythm at a rate of [address] elevation or ectopy noted. EKG reviewed by attending physician.) Discharge Plan Discharge Chief Complaint: Arrhythmia/Palpitations Clinical Impression: Symptomatic PVCs Patient Disposition: Home, Self-Care Time of Disposition Decision: 21:42 Condition: Good Mode of Transportation: Private Vehicle Prescriptions / Home Meds: No Action albuterol sulfate 90 mcg/actuation HFA aerosol inhaler 2 inh inhalation Q4H PRN (Reason: shortness of breath or wheezing) Qty: 8.5 0RF Print Language: Filipino Instructions: Premature Ventricular Contractions (ED) Referrals: Physician,Non-Staff, [Physician] - 1 week
--- NOTE | 2024-12-02 20:47 | XR_ITS ---
The [address] [address] Patient Name: EDMUND DUONG MRN: [id number] date: 1990 Sex: F Assigned Patient Location: ED.MAIN Current Patient Location: ED.MAIN Accession/Order Number: [id number] Exam Date: 12/02/2024 21:06 Report Date: 12/02/2024 21:55 At the request of: AURORA LEVINE Procedure: XR chest 1V EXAM: XR chest 1V HISTORY: Palpitations and shortness of breath. COMPARISON: 09/16/2024. TECHNIQUE: AP upright portable. FINDINGS: Cardiomediastinal silhouette and pulmonary vascularity are within normal limits. The lungs and the costophrenic angles are clear. XR/XR chest 1V IMPRESSION: Unremarkable chest. Electronically authenticated by: JOSÉ ANTONIO SOTELO Date: 12/02/2024 21:55
[2024-12-02 20:58] LABS: Bilirubin Urine NEGATIVE (NEGATIVE); Blood Urine MODERATE (NEGATIVE); Clarity Urine CLEAR (CLEAR); Color Urine LT. YELLOW (YELLOW); Glucose Urine UA NEGATIVE (NEGATIVE); Ketones Urine NEGATIVE (NEGATIVE); Leukocyte Esterase Urine NEGATIVE (NEGATIVE); Nitrite Urine NEGATIVE (NEGATIVE); Protein Urine NEGATIVE (NEG/TRACE); Specific Gravity Urine <=1.005 (1.005-1.025); Urobilinogen Urine 0.2 EU/dL (0.2-1.0); pH Urine 5.5 (5.0-9.0)
[2024-12-02 21:00] LABS: Basophils Absolute Auto 0.1 10^3/uL (0.0-0.1); Eosinophils Absolute Auto 0.5 10^3/uL (0.0-0.7); Eosinophils Percent Auto 7.4 % (0.9-7.0); Hematocrit 39.9 % (36.0-48.0); Hemoglobin 13.8 g/dL (12.0-16.0); Immature Granulocytes Abs Auto 0.05 10^3/uL (0.00-0.03); Immature Granulocytes Pct Auto 0.8 % (0.0-0.5); Lymphocytes Absolute Auto 2.3 10^3/uL (1.2-3.8); Lymphocytes Percent Auto 36.7 % (20.5-60.0); Mean Corpuscular HGB Conc 34.6 g/dL (29.9-35.2); Mean Corpuscular Hemoglobin 29.7 pg (26.7-34.0); Mean Corpuscular Volume 85.8 fL (81.0-99.0); Mean Platelet Volume 9.1 fL (9.5-13.5); Monocytes Absolute Auto 0.5 10^3/uL (0.3-0.8); Monocytes Percent Auto 8.7 % (1.7-12.0); Neutrophils Absolute Auto 2.8 10^3/uL (1.4-6.5); Neutrophils Percent Auto 45.4 % (43.0-75.0); Platelet Count 266 10^3/uL (150-450); Red Blood Count 4.65 10^6/uL (4.20-5.40); Red Cell Distribution Width 13.4 % (11.0-15.0); White Blood Count 6.2 10^3/uL (4.0-11.0)
[2024-12-02] MEDS: 0.9 % SODIUM CHLORIDE 1,000 ML 999 ML IV (21:00)
[2024-12-02 21:02] LABS: HCG Qualitative NEGATIVE (NEGATIVE); Internal Control Within Normal Limits
[2024-12-02 21:06] LABS: WBC Urine NONE SEEN #/HPF (NONE SEEN)
[2024-12-02 21:07] LABS: Bacteria Urine TRACE #/HPF (NONE SEEN); Cast Seen? NONE SEEN #/LPF (NONE SEEN); Crystals Seen? None Seen #/HPF (None Seen); Mucus Urine NONE SEEN (NONE SEEN); RBC Urine 0-2 #/HPF (0-2); Squamous Epithelial Cell Urine FEW #/LPF (NONE/RARE)
[2024-12-02 21:10] LABS: INR 1.16; Prothrombin Time 12.1 sec (9.0-11.6)
[2024-12-02 21:12] LABS: Alanine Aminotransferase 21 U/L (14-59); Albumin Globulin Ratio 1.3; Albumin Level 3.7 g/dL (3.4-5.0); Alkaline Phosphatase 65 U/L (46-116); Anion Gap 9.5; Aspartate Amino Transferase 18 U/L (15-37); BUN Creatinine Ratio 11.2; Bilirubin Total 0.4 mg/dL (0.2-1.0); Calcium 9.2 mg/dL (8.5-10.1); Chloride 105 mmol/L (98-107); Estimated GFR (African America >60 (>=60 mL/min/1.73m^2); Estimated GFR (Non-African Ame >60 (>=60 mL/min/1.73m^2); Globulin 2.9 g/dL; Glucose 74 mg/dL (74-106); Potassium 3.5 mmol/L (3.5-5.1); Sodium 143 mmol/L (136-145); Total Protein 6.6 g/dL (6.4-8.2)
[2024-12-02 21:20] LABS: Thyroid Stimulating Hormone 0.707 uIU/mL (0.358-3.740); Troponin I High Sensitivity 5.2 pg/mL (4.0-51.3)
--- NOTE | 2024-12-02 21:38 | PC.NURSE ---
OLIVIA and aware several attempts at an IV start have been made per several staff members without success. Straight for labs was successful.
== END 2024-12-02 21:59 | disposition home or self-care (01) ==
PROVIDERS: Physician Assistant; Emergency Provider Emergency Medicine; PCP Family Medicine
DX: I49.3 Ventricular premature depolarization (principal); R06.02 Shortness of breath
CPT/HCPCS: 36415; 71045; 80053; 81001; 83735; 83880; 84443; 84484; 84703; 85025; 85378; 85610; 93005; 99285

== ENCOUNTER 2024-12-13 09:31 | Outpatient (OUT) | payer BC, SELFPAY ==
--- OUTSIDE RECORDS SUMMARY | 2024-12-13 09:36 | XMS_ITS | CCD ---
Author Organization [facility] Informat ion Partnership [facility] Care Team Providers [employer] Utility Locator Name Role Phone Roshni Dow Unavailable Maxime Hardy Unavailable MD Fatemeh Neil Primary Care Provider [phone] MD Orlando Pereira Attending Provider [phone] Orlando Pereira Unavailable MD Fatemeh Neil Primary Care Provider DO Edmar Khan Emergency Provider [phone] ZENA, DR MONICA Vargas Admitting Unavailabl e REINECK, [...] Unavailable JEWELS, DR JENNIFER Castillo Consulting Unavailable SIOMARA, ROXANE Admitting Unavailable SIOMARAROXANE Attending Unavailable ROXANE STRINGER Consulting Unavailable JOLYNN, DR SCHMIDT Primary Care Unavailable KARASIK ., DR PIERCE Admitting Unavailabl e KARASIK ., DR PIERCE Attending Unavailabl e KARASIK ., DR PIERCE Consulting Unavailabl e JEWELS, DR JENNIFER Castillo Consulting Unavailable JOLYNN, DR SCHMIDT Primary Care Unavailable JAQUAN, HEMAL Admitting Unavailable JAQUAN, HEMAL Attending Unavailable JAQUAN, HEMAL Consulting Unavailable Irineo Landin Consulting Unavailable JOLYNN, DR SCHMIDT Primary Care Unavailable ROXANE STRINGER Attending Unavailable SIOMARA, ROXANE Admitting Unavailable JOLYNN, DR SCHMIDT Primary Care Unavailable HAY ., DR VALLE Admitting Unavailable ZEINA Acosta, DR VALLE Attending Unavailable ZEINA Acosta, DR VALLE Consulting Unavailable LD BLAS Consulting Unavailable Chriss CORONA Attending Unavailable Fatemeh Neil MD Primary Care Provider FATEMEH NEIL Attending Unavailable KELLE REYNOLDS Attending Unavailable Edmar Khan Attending Unavailable Edmar Khan Admitting Unavailable Fatemeh Neil Primary Care Unavailable Allergies Allergy Classification Reported Allergen(s) Allergy Type Date of Onset Reaction(s) Facility (8 sources) Sulfamethoxazole / Trimethoprim Drug Allergy 09-20-20 24 Anaphylaxis [employer] Other (7 sources) Sulfamethoxazole; Translations: [sulfamethoxazole] Drug Allergy 07-27-20 21 Swelling of Lip/Tongue/Thr oat [facility] (7 sources) Trimethoprim; Translations: [trimethoprim] Drug Allergy 07-27-20 21 Swelling of Lip/Tongue/Thr oat [facility] (2 sources) Sulfamethoxazole / Trimethoprim; Translations: [Bactrim] Drug Allergy 11-09-19 15 [facility] Repository Medications Current Medications Medication Drug Class(es) Dates Sig (Normalized) Sig (Original) acetaminophen 325 mg / HYDROcodone bitartrate 5 mg oral tablet (2 sources) Opioid Agonist Start: 07-27-2021 take 1 tablet by mouth every six hours Hydrocodone-Acetam inophen Active 1 TAB PO Q6H 10 3 July 27, 2021 [id number] 200 actuat albuterol 0.09 mg/actuat metered dose inhaler (6 sources) beta2-Adrenergic Agonist Start: 09-16-2024 End: 09-20-2024 [...] mg / naloxone 2 mg sublingual film (4 sources) Partial Opioid Agonist, Opioid Antagonist Start: 09-07-2024 Buprenorphine HCl-Naloxone HCl (Suboxone) 8-[address] 1 Film under the tongue 09/07/2024 Active DULoxetine 30 mg delayed release oral capsule (6 sources) Serotonin and Norepinephrine Reuptake Inhibitor take 1 capsule by mouth every twenty-four hours Cymbalta 30 MG 1 capsule Orally Once a day Active take 1 capsule by mo uth every twenty-four hours Cymbalta 60 MG 1 [...] mealtime Prednisone Active 50 MG PO Daily 5 July 27, 2021 12:00am administer with food or [...] Classification Problem Date Documented Da te Episodic/Chronic Acute bronchitis (2 sources) Acute bronchitis; Translations: [Acute bronchitis, unspecified] 09-20-2024 Episodic Cardiac dysrhythmias (6 sources) Palpitations; Translations: [Palpitations] Onset: 5 12-07-2024 Episodic Joint disorders and dislocations; trauma-related (6 sources) Dislocation of temporomandibular joint; Translations: [Dislocation of jaw, unspecified side, initial encounter] Onset: 4 07-27-2021 Episodic Malaise and fatigue (4 sources) Fatigue; Translations: [Chronic fatigue, unspecified] Onset: 4 09-20-2024 Chronic Mood disorders (4 sources) Major depression, single episode; Translations: [Major depressive disorder, single episode, unspecified] Onset: 4 09-20-2024 Chronic Other circulatory disease (4 sources) Elevated blood-pressure reading without diagnosis of hypertension; Translations: [Elevated blood-pressure reading, without diagnosis of hypertension] Onset: 5 12-07-2024 Episodic Other endocrine disorders (4 sources) Hyperparathyroidism; Translations: [Hyperparathyroidism, unspecified] Onset: 4 09-20-2024 Chronic Other gastrointestinal disorders (5 sources) Dysphagia; Translations: [Dysphagia, unspecified] Onset: 4 09-20-2024 Episodic Other nervous system disorders (4 sources) Loss of taste; Translations: [Parageusia] Onset: 4 09-20-2024 Episodic Other nutritional; endocrine; and metabolic disorders (4 sources) Hypercalcemia; Translations: [Hypercalcemia] Onset: 4 09-20-2024 Chronic Other screening for suspected conditions (not mental disorders or infectious disease) (17 sources) Other abnormal and inconclusive findings on diagnostic imaging of breast; Translations: [Encounter for screening mammogram for malignant neoplasm of breast] Onset: 4 Episodic Residual codes; unclassified (1 source) Family history of malignant neoplasm of breast; Translations: [FAMILY HX MALIG NEOPLASM OF BREAST] Onset: 3 Episodic Residual codes; unclassified (4 sources) Insomnia; Translations: [Insomnia, unspecified] Onset: 4 09-20-2024 Episodic Substance-related disorders (9 sources) Nicotine dependence, cigarettes, uncomplicated; Translations: [Smoker] Onset: 3 09-20-2024 Chronic Unclassified (2 sources) COUGH, UNSPECIFIED; Translations: [COUGH, UNSPECIFIED] Onset: 3 Viral infection (4 sources) COVID-19; Translations: [Other specified viral infection] Onset: 4 09-20-2024 Episodic Past or Other Problems Problem Classification Problem Date Documented Da te Episodic/Chronic Abdominal pain (6 sources) Abdominal pain; Translations: [Unspecified abdominal pain] Onset: 03-11-2023 03-11-2023 Episodic Crushing injury or internal injury (1 source) [...] Test Name Value Interpretation Reference Range Facility TSH W/REFLEX TO FT4on 2024 TSH W/REFLEX TO FT4 0.66 mIU/L Normal [facility] Comment on above: Result Comment: Refmee mace Range > or = 20 Years 0.40-4.50 Ranges First trimester 0.26-2.66 Second trimester 0.55-2.73 Third trimester 0.43-2.91 Performed By: #### [id number] #### [facility] [address] [facility], [address] [place] [address] [place] Operator: Isiah Loaiza MD Consenton 01-01-2024 Consent [id number] Normal [facility] Registrationon 01-01-2024 Registration [id number] Normal [facility] Alanine aminotransferase [En zymatic activity/volume] in Serum or PlasmaOrdered By: Edmar Khan on 03-11-2023 ALT [Catalytic activity/Vol] 12 U/L 7-52 [facility] Albumin [Mass/volume] in Ser um or Plasma by Bromocresol green (BCG) dye binding methoOrdered By: Edmar Khan on 03-11-2023 Albumin BCG dye [Mass/Vol] 4.2 g/dL 3.5-5.7 [facility] Alkaline phosphatase [Enzyma tic activity/volume] in Serum or PlasmaOrdered By: Edmar Khan on 03-11-2023 ALP [Catalytic activity/Vol] 52 U/L 34-104 [facility] Aspartate aminotransferase [ Enzymatic activity/volume] in Serum or PlasmaOrdered By: Edmar Khan on 03-11-2023 AST [Catalytic activity/Vol] 22 U/L 13-39 [facility] Basophils Auto (Bld) [#/Vol] Ordered By: Edmar Khan on 03-11-2023 Basophils (Bld) [#/Vol] 0.1 10*3/uL 0.0-0.2 [facility] Basophils/100 WBC Auto (Bld) Ordered By: Edmar Khan on 03-11-2023 Basophils/100 WBC (Bld) 1.0 % . [facility] Bilirubin Test strip Ql (U)O rdered By: PROVIDER TEMP on 03-11-2023 Bilirubin Ql (U) Negative Negative [facility] Bilirubin.direct [Mass/volum e] in Serum or PlasmaOrdered By: Edmar Khan on 03-11-2023 Bilirubin.direct [Mass/Vol] 0.00 mg/dL 0.03-0.18 [facility] Comment on above: If the DBIL is less than 0.1, IBIL is not able to becalculated. Bilirubin.total [Mass/volume ] in Serum or PlasmaOrdered By: Edmar Khan on 03-11-2023 Bilirubin [Mass/Vol] 0.4 mg/dL 0.3-1.0 [facility] Calcium [Mass/volume] in Ser um or PlasmaOrdered By: Edmar Khan on 03-11-2023 Calcium [Mass/Vol] 9.0 mg/dL 8.6-10.3 [facility] Carbon dioxide, total [Moles /volume] in Serum or PlasmaOrdered By: Edmar Khan on 03-11-2023 CO2 [Moles/Vol] 20.2 mmol/L 21.0-31.0 [facility] Chloride [Moles/volume] in S nikolas or PlasmaOrdered By: Edmar Khan on 03-11-2023 Chloride [Moles/Vol] 106 mmol/L 98-107 [facility] Color Auto (U)Ordered By: CELESTE THOMAS TEMJorge on 03-11-2023 Color (U) Yellow Yellow [facility] Creatinine [Mass/volume] in Serum or PlasmaOrdered By: Edmar Khan on 03-11-2023 Creatinine [Mass/Vol] 0.60 mg/dL 0.60-1.20 [facility] Eosinophils Auto (Bld) [#/Vo l]Ordered By: Edmar Khan on 03-11-2023 Eosinophils (Bld) [#/Vol] 0.3 10*3/uL 0.0-0.45 [facility] Eosinophils/100 WBC Auto (Bl d)Ordered By: Edmar Khan on 03-11-2023 Eosinophils/100 WBC (Bld) 5.0 % . [facility] Erythrocyte distribution wid th Auto (RBC) [Ratio]Ordered By: Edmar Khan on 03-11-2023 Erythrocyte distribution width (RBC) [Ratio] 14.9 % 11.9-15.3 [facility] Globulin Calc (S) [Mass/Vol] Ordered By: Edmar Khan on 03-11-2023 Globulin (S) [Mass/Vol] 2.4 g/dL [facility] Glucose [Mass/volume] in Ser um or PlasmaOrdered By: Edmar Khan on 03-11-2023 Glucose [Mass/Vol] 78 mg/dL 70-100 [facility] Comment on above: ADA recommended refe rence rangeRandom Glucose Reference Range is dependent on time and content of last meal. Glucose of more than 200 mg/dL in a nonstressed, ambulatory subject supports the diagnosis of Diabetes Mellitus. HCG ( test) IA.rapi d Ql (U)Ordered By: PROVIDER RACHAEL on 03-11-2023 HCG ( test) Ql (U) Negative [facility] Hematocrit Auto (Bld) [Volum e fraction]Ordered By: Edmar Khan on 03-11-2023 Hematocrit (Bld) [Volume fraction] 45.5 % 34.0-46.4 [facility] Hemoglobin [Mass/volume] in BloodOrdered By: Edmar Khan on 03-11-2023 Hemoglobin (Bld) [Mass/Vol] 15.1 g/dL 11.8-15.4 [facility] Ketones Auto test strip (U) [Mass/Vol]Ordered By: PROVIDER RACHAEL on 03-11-2023 Ketones (U) [Mass/Vol] Negative [facility] Leukocytes [#/volume] correc mariana for nucleated erythrocytes in Blood by Automated counOrdered By: Edmar Khan on 03-11-2023 WBC corrected for nucl RBC Auto (Bld) [#/Vol] 6.7 10*3/uL 3.8-11.6 [facility] Lipase [Enzymatic activity/v olume] in Serum or PlasmaOrdered By: Edmar Khan on 03-11-2023 Lipase [Catalytic activity/Vol] 10.0 U/L 11.0-82.0 [facility] Lymphocytes Auto (Bld) [#/Vo l]Ordered By: Edmar Khan on 03-11-2023 Lymphocytes (Bld) [#/Vol] 2.5 10*3/uL 1.00-4.8 [facility] Lymphocytes/100 WBC Auto (Bl d)Ordered By: Edmar Khan on 03-11-2023 Lymphocytes/100 WBC (Bld) 36.8 % . [facility] MCH Auto (RBC) [Entitic mass ]Ordered By: Edmar Khan on 03-11-2023 MCH (RBC) [Entitic mass] 28.0 pg 24.7-34.3 [facility] MCHC Auto (RBC) [Mass/Vol]Or dered By: Edmar Khan on 03-11-2023 MCHC (RBC) [Mass/Vol] 33.1 g/dL 32.0-35.0 [facility] MCV Auto (RBC) [Entitic vol] Ordered By: Edmar Khan on 03-11-2023 MCV (RBC) [Entitic vol] 84.7 fL 80-100 [facility] Monocyte distribution width [Entitic volume] in Blood by AutomatedOrdered By: Edmar Khan on 03-11-2023 Monocyte distribution width Auto (Bld) [Entitic vol] 15.29 % 0.00-20.00 [facility] Monocytes Auto (Bld) [#/Vol] Ordered By: Edmar Khan on 03-11-2023 Monocytes (Bld) [#/Vol] 0.5 10*3/uL 0.0-0.8 [facility] Monocytes/100 WBC Auto (Bld) Ordered By: Edmar Khan on 03-11-2023 Monocytes/100 WBC (Bld) 8.0 % . [facility] Neutrophils Auto (Bld) [#/Vo l]Ordered By: Edmar Khan on 03-11-2023 Neutrophils (Bld) [#/Vol] 3.3 10*3/uL 1.8-7.7 [facility] Neutrophils/100 WBC Auto (Bl d)Ordered By: Edmar Khan on 05-09-2023 Neutrophils/100 WBC (Bld) 49.2 % . [facility] Nitrite Test strip Ql (U)Ord ered By: PROVIDER TEMP on 03-11-2023 Nitrite Ql (U) Negative Negative [facility] No Panel InformationOrdered By: Edmar Khan on 03-11-2023 Estimated GFR (CKD-EPI) > 60.0 mL/Min [facility] Creatinine Clearance (Chem 144.87 [facility] Nucleated erythrocytes [Pres ence] in Blood by Automated countOrdered By: Edmar Khan on 03-11-2023 Nucleated RBC Auto Ql (Bld) 0.2 /100{WBC} 0-0.5 [facility] Platelet mean volume Auto (B ld) [Entitic vol]Ordered By: Edmar Khan on 03-11-2023 Platelet mean volume (Bld) [Entitic vol] 7.2 fL 6.3-10.7 [facility] Platelets Auto (Bld) [#/Vol] Ordered By: Edmar Khan on 03-11-2023 Platelets (Bld) [#/Vol] 215 10*3/uL 150-450 [facility] Potassium [Moles/volume] in Serum or PlasmaOrdered By: Edmar Khan on 03-11-2023 Potassium [Moles/Vol] 3.8 mmol/L 3.5-5.1 [facility] Protein Auto test strip (U) [Mass/Vol]Ordered By: PROVIDER TEMP on 03-11-2023 Protein (U) [Mass/Vol] Negative Negative [facility] Protein [Mass/volume] in Ser um or PlasmaOrdered By: Edmar Khan on 03-11-2023 Protein [Mass/Vol] 6.6 g/dL 6.4-8.9 [facility] RBC Auto (Bld) [#/Vol]Ordere d By: Edmar Khan on 03-11-2023 RBC (Bld) [#/Vol] 5.38 10*6/uL 3.60-5.00 [facility] Serum or plasma albumin/glob ulin mass ratioOrdered By: Edmar Khan on 03-11-2023 Albumin/Globulin [Mass ratio] 1.8 {ratio} [facility] Serum or plasma anion gap de terminationOrdered By: Edmar Khan on 03-11-2023 Anion gap [Moles/Vol] 13.6 mmol/L 6.0-15.0 [facility] Serum or plasma non-glucuron idated bilirubin measurement (mass/volume)Ordered By: Edmar Khan on 03-11-2023 Bilirubin.indirect [Mass/Vol] 0.4 mg/dL [facility] Sodium [Moles/volume] in Ser um or PlasmaOrdered By: Edmar Khan on 03-11-2023 Sodium [Moles/Vol] 136 mmol/L 136-145 [facility] Specific gravity Auto test s trip (U) [Rel density]Ordered By: PROVIDER TEMP on 03-11-2023 Specific gravity (U) [Rel density] 1.016 1.001-1.030 [facility] Urea nitrogen [Mass/volume] in Serum or PlasmaOrdered By: Edmar Khan on 03-11-2023 Urea nitrogen [Mass/Vol] 6 mg/dL 7-25 [facility] Urine clarity by refractomet ry automatedOrdered By: PROVIDER TEMP on 03-11-2023 Clarity Refractometry automated (U) Clear Clear [facility] Urine glucose measurement by automated test strip (mass/volume)Ordered By: PROVIDER TEMP on 03-11-2023 Glucose Auto test strip (U) [Mass/Vol] Normal mg/dL Normal [facility] Urine hemoglobin detection b y automated test stripOrdered By: PROVIDER TEMP on 03-11-2023 Hemoglobin Auto test strip Ql (U) Negative Negative [facility] Urine leukocyte esterase det ection by automated test stripOrdered By: PROVIDER TEMP on 03-11-2023 Leukocyte esterase Auto test strip Ql (U) Negative Negative [facility] Urobilinogen Auto test strip (U) [Mass/Vol]Ordered By: PROVIDER TEMP on 03-11-2023 Urobilinogen (U) [Mass/Vol] Normal mg/dL Normal [facility] WBC Auto (Bld) [#/Vol]Ordere d By: Edmar Khan on 03-11-2023 WBC (Bld) [#/Vol] 6.7 10*3/uL 3.8-11.6 [facility] pH Auto test strip (U)Ordere d By: PROVIDER TEMP on 03-11-2023 pH (U) 5.5 [pH] 5.0-9.0 [facility] MG MAMM RT DIAG FUon 023 MG MAMM RT DIAG FU Patient: EDMUND DUONG Exam Date: 12/25/2022 : 1990 Gender:F Ordering : DR HEMAL PARTIDA . Admission #: [id number] Family : Order #: [id number] CLICK HERE TO VIEW EXAM RADIOLOGY REPORT [...] breast cancer at age 35. LOCATION: [facility] BREAST COMPOSITION: Heterogeneously dense,which may obscure small [...] M.D. on 12/25/2022 at 14:29 Normal [facility] US BREAST RIGHT LIMITEDon US BREAST RIGHT LIMITED Patient: EDMUND DUONG Exam Date: 12/25/2022 : 1990 Gender:F Ordering : DR HEMAL PARTIDA . Admission #: [id number] Family : Order #: [id number] CLICK HERE TO VIEW EXAM RADIOLOGY REPORT [...] breast cancer at age 35. LOCATION: [facility] BREAST COMPOSITION: Heterogeneously dense,which may obscure small [...] M.D. on 12/25/2022 at 14:29 Normal [facility] MG MAMM SCREEN 3D HONEY CADon 12-12-2022 MG MAMM SCREEN 3D HONEY CAD Patient: EDMUND DUONG Exam Date: 12/12/2022 : 1990 Gender:F Ordering : DR KARI GIMENEZ . Admission #: [id number] Family : Order #: [id number] CLICK HERE TO VIEW EXAM RADIOLOGY REPORT [...] breast cancer at age 35. LOCATION: [facility] BREAST COMPOSITION: Heterogeneously dense,which may obscure small [...] Jennifer Donis MD on 12/13/2022 at 07:33 Normal [facility] COVID-19 SOFIAOrdered By: Sparkle Pereira on 10-31-2022 SARS-CoV+SARS-CoV-2 (COVID-19) Ag IA.rapid Ql (Resp) Negative Negative [facility] Comment on above: This is a duplicate Anel SARS Antigen (VIJAY) result to be used for statistical tracking purpose only. No Panel InformationOrdered By: Orlando Pereira on 10-31-2022 SARS Antigen (LFIA) [facility] US THYROIDon 10-15-2022 US THYROID EXAMINATION: US [...] by: JENNIFER DONIS Date: 2022-10-15 07:07 Normal [facility] US EXT NON VASC LIMITED RTon [...] JENNIFER DONIS Date: 2022-06-10 07:41 Normal [facility] XR ANKLE RT MIN 3 VIEWSon XR [...] by: LD BLAS Date: 2022-04-28 14:30 Normal [facility] XR knee RT 4V*on 02-18-2022 XR knee RT 4V* [facility] [employer] Other XR knee RT 4V* [facility] s0cket Other XR knee RT 4V* [address] [facility] [employer] Other XR knee RT 4V* [place] [id number] No rt [employer] Other XR knee RT 4V* XRay Report [employer] Other XR knee RT 4V* Signed [employer] Other XR knee RT 4V* Patient: Edmund Duong MR#: [id number] [place]ard[place] [employer] Other XR knee RT 4V* : 1990 Acct:[id number] [employer] Other XR knee RT 4V* Age/Sex: 32 / F ADM Date: 02/18/22 [employer] Other XR knee RT 4V* Loc: [id number] Room: Type: [facility] [employer] Other XR knee RT 4V* Attending Dr: Maxime Hardy [facility] [employer] Other XR knee RT 4V* Ordering Provider: Maxime Hardy [facility] [employer] Other XR knee RT 4V* Date of Service: 02/18/22 [employer] Other XR knee RT 4V* XR/XR knee RT 4V*: PAIN [id number] [employer] Other XR knee RT 4V* Copies to: Maxime Hardy [email or web address] [employer] Other XR knee RT 4V* RIGHT KNEE - 4 views [employer] Other XR knee RT 4V* CLINICAL HISTORY: Patient was doing squats a couple days ago and felt pain at the right knee [employer] Other XR knee RT 4V* laterally. [employer] Other XR knee RT 4V* COMPARISON: None [facility] [employer] Other XR knee RT 4V* AP, lateral and both oblique views were obtained. There is no evidence of fracture or dislocation. [employer] Other XR knee RT 4V* No disproportionate joint space narrowing is present there is minimal marginal spurring, greatest at [employer] Other XR knee RT 4V* the posterior patella. No significant knee effusion or focal soft tissue swelling is identified. [employer] Other XR knee RT 4V* XR/XR knee RT 4V* [employer] Other XR knee RT 4V* IMPRESSION: [employer] Other XR knee RT 4V* NO ACUTE BONY FINDINGS. [employer] Other XR knee RT 4V* Impression dictated by: Kelle Gomes M.D.02/18/2022 12:32 PM [employer] Other XR knee RT 4V* Dictation Location: [place] [address] [employer] Other XR knee RT 4V* Transcribed By: KASSY 02/18/22 [facility] [employer] Other XR knee RT 4V* Dictated By: Kelle Gomes MD 02/18/22 [facility] [employer] Other XR knee RT 4V* Signed By: [employer] Other XR knee RT 4V* 02/18/22 [facility] [employer] Other Vital Signs Date Time Vital Sign Value Performing Clinician Facility 12-07-2024 14:23-0500 Body height 171.7 cm Fatemeh Neil MD Work Phone: [facility] 12-07-2024 14:23-0500 Body mass index (BMI) [Ratio] 29.54 kg/m2 Fatemeh Neil MD Work Phone: [facility] 12-07-2024 14:23-0500 Body weight 87.09 kg Fatemeh Neil MD Work Phone: [facility] 12-07-2024 14:23-0500 Diastolic blood pressure 88 mm[Hg] Fatemeh Neil MD Work Phone: [facility] 12-07-2024 14:23-0500 Heart rate 77 /min Fatemeh Neil MD Work Phone: [facility] 12-07-2024 14:23-0500 SaO2% (BldA) [Mass fraction] 97 % Fatemeh Neil MD Work Phone: [facility] 12-07-2024 14:23-0500 Systolic blood pressure 132 mm[Hg] Fatemeh Neil MD Work Phone: [facility] 09-20-2024 15:19-0500 Body height 171.7 cm Kelle Hemmer PA Work Phone: [facility] 09-20-2024 15:19-0500 Body mass index (BMI) [Ratio] 27.91 kg/m2 Kelle Hemmer PA Work Phone: [facility] 09-20-2024 15:19-0500 Body temperature 97.3 [degF] Kelle Hemmer PA Work Phone: [facility] 09-20-2024 15:19-0500 Body weight 82.28 kg Kelle Hemmer PA Work Phone: [facility] 09-20-2024 15:19-0500 Diastolic blood pressure 78 mm[Hg] Kelle Hemmer PA Work Phone: [facility] 09-20-2024 15:19-0500 Heart rate 90 /min Kelle Hemmer PA Work Phone: [facility] 09-20-2024 15:19-0500 Respiratory rate 16 /min Kelle Hemmer PA Work Phone: [facility] 09-20-2024 15:19-0500 SaO2% (BldA) [Mass fraction] 92 % Kelle Hemmer PA Work Phone: [facility] 09-20-2024 15:19-0500 Systolic blood pressure 117 mm[Hg] Kelle Hemmer PA Work Phone: [facility] 03-11-2023 17:05-0400 Diastolic blood pressure 64 mm[Hg] MD Fatemeh Neil Work Phone: [facility] 03-11-2023 17:05-0400 Heart rate 68 /min MD Fatemeh Neil Work Phone: [facility] 03-11-2023 17:05-0400 Respiratory rate 18 /min MD Fatemeh Neil Work Phone: [facility] 03-11-2023 17:05-0400 SaO2% (BldA) [Mass fraction] 97 % MD Fatemeh Neil Work Phone: [facility] 03-11-2023 17:05-0400 Systolic blood pressure 108 mm[Hg] MD Fatemeh Neil Work Phone: [facility] 03-11-2023 14:59-0400 Body temperature 97.8 [degF] MD Fatemeh Neil Work Phone: [facility] 03-11-2023 13:09-0400 Body height 170.18 cm MD Fatemeh Neil Work Phone: [facility] 03-11-2023 13:09-0400 Body weight 82.9 kg MD Fatemeh Neil Work Phone: [facility] 02-18-2022 12:20-0400 Body height 170.18 cm Maxime Hardy Other [employer] Other 02-18-2022 12:20-0400 Body mass index (BMI) [Ratio] 28.97 kg/m2 Maxime Hardy Other [employer] Other 02-18-2022 12:20-0400 Body temperature 98.7 [degF] Maxime Hardy Other [employer] Other 02-18-2022 12:20-0400 Body weight 83.92 kg Maxime Hardy Other [employer] Other 02-18-2022 12:20-0400 Respiratory rate 18 /min Maxime Hardy Other [employer] Other 02-18-2022 12:20-0400 SaO2% (BldA) [Mass fraction] 98 % Maxime Hardy Other [employer] Other 12-01-2021 12:00-0500 Body height 170.18 cm Roshni Dow Other [employer] Other 12-01-2021 12:00-0500 Body mass index (BMI) [Ratio] 31.48 kg/m2 Roshni Victor M Other [employer] Other 12-01-2021 12:00-0500 Body temperature 97.8 [degF] Roshni Victor M Other [employer] Other 12-01-2021 12:00-0500 Body weight 91.17 kg Roshni Victor M Other [employer] Other 12-01-2021 12:00-0500 Diastolic blood pressure 74 mm[Hg] Roshni Dow Other [employer] Other 12-01-2021 12:00-0500 Respiratory rate 18 /min Roshni Dow Other [employer] Other 12-01-2021 12:00-0500 SaO2% (BldA) [Mass fraction] 99 % Roshni Dow Other [employer] Other 12-01-2021 12:00-0500 Systolic blood pressure 146 mm[Hg] Roshni Dow Other [employer] Other Encounters Encounter Date Encounter Type Care Provider Facility Start: 12-07-2024 End: 12-07-2024 Office outpatient visit 25 minutes Fatemeh Neil MD Work Phone: [facility] Comment on above: Palpitations (Primar y Dx); Elevated BP without diagnosis of hypertension; Cigarette nicotine dependence with other nicotine-induced disorder Start: 12-07-2024 End: 12-07-2024 ambulatory FATEMEH NEIL Not Available Start: 09-20-2024 End: 09-20-2024 ambulatory KELLE REYNOLDS Not Available Start: 09-20-2024 End: 09-20-2024 Office outpatient visit 15 minutes Kelle BAKER Work Phone: [facility] Comment on above: Acute bronchitis, un specified organism (Primary Dx) Start: 01-01-2024 End: 2024 ambulatory [facility] Facility:[facility] Start: 03-11-2023 End: 03-11-2023 Emergency department patient visit MD Fatemeh Neil Work Phone: [facility] Work Phone: Start: 12-25-2022 End: 12-26-[address] FATEMEH NEIL Facility: Start: 12-12-2022 End: 12-13-[address] FATEMEH NEIL Facility:[facility]1 Start: 11-17-2022 End: 11-17-[address] MONICA FREITAS Facility:[facility]1 Start: 10-31-2022 End: 10-31-2022 ambulatory MD Fatemeh Neil Work Phone: [facility] Work Phone: Start: 10-31-2022 End: 10-31-2022 Patient encounter procedure MD Fateemh Neil Work Phone: [facility] [employer] Work Phone: Start: 10-18-2022 End: 10-18-2022 ambulatory Orlando Pereira Other [employer] Other Start: 10-18-2022 Telephone encounter Orlando Vargas [employer] Start: 10-14-2022 End: 10-15-[address] FATEMEH NEIL Facility:[facility] Start: 06-07-2022 End: 06-08-[address] FATEMEH NEIL Facility:[facility] Start: 05-30-[address] FATEMEH NEIL Facility: [facility] Start: 04-28-2022 End: 04-28-[address] FATEMEH NEIL Facility:[facility] Start: 03-11-2022 End: 03-11-2022 ambulatory Maxime Hardy Other [employer] Other Start: 03-11-2022 Telephone encounter Maxime [facility] [place] Start: 02-18-2022 End: 02-18-2022 ambulatory Maxime Hardy Other [employer] Other Start: 02-18-2022 Office outpatient vi sit 25 minutes Maxime Hardy [facility] [address] Start: 12-01-2021 End: 12-01-2021 ambulatory Roshni Dow Other [employer] Other Start: 12-01-2021 Office outpatient ne w 20 minutes Roshni Dow [facility] [place] Procedures Date Procedure Procedure Detail Performing Clinician Start: 03-11-2023 Diagnostic radiograp hy of abdomen MD Fatemeh Neil Work Phone: Start: 10-31-2022 SARS Antigen (LFIA) MD Fatemeh Neil Work Phone: Plan of Treatment Date Care Activity Detail Author Start: 12-17-2024 End: 12-17-2024 Patient encounter procedure 12/17/2024 10:00 AM EST [facility] [address] [place] [id number] Kelle Reynolds PA [address] [place] [address] [facility] Start: 12-07-2024 End: 12-07-2025 Holter monitor study Holter monitor Imaging Routine Palpitations Expected: 12/07/2024 (Approximate), Expires: 12/07/2025 [facility] Work Phone: Comment on above: Expected: 12/07/2024 (Approximate), Expires: 12/07/2025 Start: 12-07-2024 End: 12-07-2025 TSH W/REFLEX TO FT4 TSH W/REFLEX TO FT4 Lab Routine Palpitations Expected: 12/07/2024 (Approximate), Expires: 12/07/2025 [facility] Comment on above: Expected: 12/07/2024 (Approximate), Expires: 12/07/2025 Start: 07-04-2024 Influenza vaccination Influenza Vacc ine (#1) [facility] Start: 03-11-2023 CT of abdomen and pelvis without contrast CT abdomen pelvis wo con [facility] Start: 01-01-2018 Screening for malign ant neoplasm of cervix [facility] Start: 01-01-2009 Screening for malign ant neoplasm of cervix Pap Smear [facility] Patient Education Abdominal Pain , Adult ED [facility] Work Phone: Patient referral [facility] Work Phone: Payers Date Payer Category Payer Self-pay [id number] 2022 [employer] Blue [employer] BCBS [id number] 2017 Unknown 1988 Unknown [id number] [id number]. 593 1988 Unknown [id number] [id number]. 593 1988 Unknown [id number] [id number]. 593 1988 Unknown [id number] 2.16.840.1.028484.3.579.2. 593 1988 Unknown [id number] 2.16.840.1.145219.3.579.2. 593 1988 Unknown [id number] 2.16.840.1.220317.3.579.2. 593 1988 Unknown [id number] 2.16.840.1.617908.3.579.2. 593 1988 Unknown [id number] 2.16.840.1.404805.3.579.2. 727 1988 Unknown [id number] 2.16.840.1.903783.3.579.2. 1259 1988 Unknown [id number] 2.16.840.1.070354.3.579.2. 1259 1959 Blue [place] Blue [facility] [id number] 1959 Unknown [id number] Unknown [facility] [id number] Unknown [id number] [id number]. 531 Social History Date Type Detail Facility Start: 09-20-2024 End: 12-07-2024 Sex Assigned At [facility] [employer] Other Start: 07-27-2021 End: 03-11-2023 Tobacco smoking status [facility] Smoker (finding) [facility] Start: 1990 Sex Assigned At Female F [facility] Start: 09-20-2024 Tobacco smoking stat [place] Smokes tobacco daily [facility] History of tobacco use Cigarette Smoker [facility] Start: 09-20-2024 Tobacco use and exposure User of smokeless tobacco [facility] Start: 09-20-2024 End: 12-07-2024 Alcoholic beverage intake Lifetime non-drinker (finding) [facility] Start: 09-20-2024 End: 12-07-2024 History of Social function [facility] Start: 1990 Sex assigned at Not on file [facility] History of Present illness Narrative 12-07-2024 Fatemeh Neil MD - 12/07/2024 2:43 PM Nataly Neil MD - 12/07/2024 2:41 PM Nataly Neil MD - 12/07/2024 2:30 PM EST Note Date & Type Note Facility 12-07-2024 History of Presen t illness Narrative Associated Problem(s): Dependence on nicotine from cigarettes Discussed smoking cessation with the patient. Encouraged patient to try to cut back gradually and soon quit smoking. Discussed ways to quit smoking including gum, patches, medication, and gradually reducing the number of cigarettes smoked daily. Discussed potential health risks of prison smoking. Patient voiced understanding. Benefits of cessation, both health and financial, were reviewed. Associated Problem(s): Elevated BP without diagnosis of hypertension Our specific goals, for your hypertension, is to keep your blood pressure less than 140/90, and the importance of weight control. We made recommendations on how to control your blood pressure, and minimize your risk of these copmplications. We also discussed your current barriers to a healthy living and importance of healthy diet and exercise. Prior to your visit today we have reviewed your chart and formed a plan to assist with providing you the best possible care. We reviewed the possible complications of hypertension including, stroke, heart failure and kidney impairment. In addition, we discussed your medications, the importance of taking them as prescribed. DASH diet handouts Images from the original note were not included. HPI ER Follow-up Additional comments: Been having palpitations Last edited by Florida Jones MA on 12/07/2024 11:44 AM. Subjective Patient ID: Edmund Duong is a 34 y.o. female who presents for ER Follow-up (Been having palpitations ). Pt here due to having palpitations for a full week now, she was seen in Er on 12/02 they did do labs EKG and an XR Pt was told she was having PVC's Started last Friday and noticing some skipped beats and hard beats Job is not stressful Smokes 1PPD Does drink a cup of coffee a day Flowsheet Row Documentation from 12/03/2024 in [facility] with Deyanira Barajas MA Hospital Information ED, Hospital or Halfway Facility Discharge? ED Patient has been contacted within 1 week of being seen in the ED Yes Diagnosis palpatations Discharge Date 12/02/24 Discharged To: Home Setting Discharge Hospital [facility] Engagement Call Start Time 734 Admission Date 12/02/24 Medications Discharge medications reviewed and reconciled from hospital? Yes Appointments Does the patient have a primary care provider? Yes Self Management Patient Teaching Does the patient have access to their discharge instructions? Yes Wrap Up Call End Time 0736 Current Outpatient Medications on File Prior to Visit Medication Sig Dispense Refill albuterol HFA 90 mcg/act inhaler Inhale 2 puffs every 4 (four) hours if needed for wheezing or shortness of breath 18 g 0 Buprenorphine HCl-Naloxone HCl (Suboxone) 8-[address] Film under the tongue No current facility-administered medications on file prior [...] excison goiter TUBAL LIGATION Visit Vitals BP 132/88 Pulse 77 Ht 5' 7.6 Wt 192 lb SpO2 97% BMI 29.54 kg/m Smoking Status Every Day BSA 2.04 m Review of Systems Constitutional: Negative for chills and fever. Respiratory: Positive for shortness of breath. Negative for chest tightness. Cardiovascular: Positive for palpitations. Negative for chest pain. Neurological: Negative for dizziness. Objective Physical Exam Constitutional: General: She is not in acute distress. Appearance: Normal appearance. HENT: Head: Normocephalic. Cardiovascular: Rate and Rhythm: Normal rate and regular rhythm. Comments: Subjectively felt HR skip Pulmonary: Effort: Pulmonary effort is normal. No respiratory distress. Breath sounds: Normal breath sounds. Neurological: General: No focal deficit present. Mental Status: She is alert and oriented to person, place, and time. Psychiatric: Mood and Affect: Mood normal. Assessment/Plan Problem List Items Addressed This Visit Palpitations - Primary Relevant Orders Holter monitor TSH W/REFLEX TO FT4 Elevated BP without diagnosis of hypertension Our specific goals, for your hypertension, is to keep your blood pressure less than 140/90, and the importance of weight control. We made recommendations on how to control your blood pressure, and minimize your risk of these copmplications. We also discussed your current barriers to a healthy living and importance of healthy diet and exercise. Prior to your visit today we have reviewed your chart and formed a plan to assist with providing you the best possible care. We reviewed the possible complications of hypertension including, stroke, heart failure and kidney impairment. In addition, we discussed your medications, the importance of taking them as prescribed. DASH diet handouts Dependence on nicotine from cigarettes Discussed smoking cessation with the patient. Encouraged patient to try to cut back gradually and soon quit smoking. Discussed ways to quit smoking including gum, patches, medication, and gradually reducing the number of cigarettes smoked daily. 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 Patient voiced understanding. Benefits of cessation, both health and financial, were reviewed. No follow-ups on file. documented in this encounter [facility] History of Present illness Narrative 09-20-2024 [...] sore from coughing, wheezing, SOB. Went to [facility] ER on 09/16/24 Dx. URI Rx'd Albuterol [...] Wellness, Fasting Labs. documented in this encounter [facility] Evaluation note 02-18-2022 Note Date & Type [...] Jason as directed. I will have my nut sifter call you to make an appointment with [...] She understands and agrees with the plan. [employer] Other Evaluation note 12-01-2021 Note Date & Type Note Facility 12-01-2021 Evaluation note Encounter Date Diagnosis Assessment Notes Nov, Tooth infection (ICD-10 - K04.7) Take medications as directed.Highly encourage patient to contact dentist AYAN for further treatment of infection. Do not take OTC medications like ibuprofen with prescriptions [employer] Other Evaluation note Note Date & Type Note Facility Evaluation note No Information [employer] Other Evaluation note Note Date & Type Note Facility Evaluation note No assessment information [facility] Work Phone: Evaluation note Note Date & Type Note Facility Evaluation note Diagnosis Acute bronchitis, unspecified organism- Primary documented in this encounter [facility] Evaluation note Note Date & Type Note Facility Evaluation note Diagnosis Palpitations- Primary Elevated BP without diagnosis of hypertension Cigarette nicotine dependence with other nicotine-induced disorder documented in this encounter [facility] History general Narrative - Reported Note Date & Type Note Facility History general Narrative - Reported Type Surgical History cyst removed from neck Hospitalization History see surgical hx. [employer] Other Hospital Discharge instructions Note Date & Type Note Facility Hospital Discharge instructions Additional Instructions Follow-up with your primary care doctor Return to ED if develop worsening symptoms or concerns [facility] Work Phone: Reason for Referral Reason *Waiting for appt Needs to follow up with Dr. Jason for R. knee sprain. Diagnosis 1 Sprain of right knee , unspecified ligament, initial encounter (S83.91XA) Referral Organization [facility] Referring Provider First Name Maxime Referring Provider Last Name [place] Referring Provider Specialty Nurse Eva itionedanielle Referred Organization [facility] Family [facility]in e Rick Referred Provider Chris Jason Referred Address [address] [place], [place] [address] [place],[address] Referred Provider Specialty Sport Medici ne Referral Priority Routine General Notes Elsa Armenta M 022 01:30:30 PM >Received and sent [...] FOR VISIT (unrecogniz ed section and content) Reason Comments ER Follow-up Been having palpitat ions Care Teams (unrecognized sec tion and content) Team Status: Inactive Member Role Status Dates Fatemeh Neil MD Primary Care Provider Active Orlando Pereira MD Attending Provider Active Team Status: Active Member Role Status Dates Fatemeh Neil MD Primary Care Provider Active Team Status: Inactive Member Role Status Dates Fatemeh Neil MD Primary Care Provider Active Edmar Khan DO Emergency Provider Active [employer] Relationship Specialty Start Date End Date Fatemeh Neil MD [address] [place] [address] PCP - General Family Medicine 03/11/23 [employer] Relationship Specialty Start Date End Date Fatemeh Neil MD [address] [place], [place] [id number] PCP - General Family Medicine 03/11/23 Goals (unrecognized section and content) Goals may be documented in a n alternate section INFORMATION SOURCE (unrecogn ized section and content) DATE CREATED AUTHOR 03/13/2023 [facility] DATE CREATED AUTHOR AUTHOR'S ORGANIZ ATION 01/04/2024 [facility] DATE CREATED AUTHOR AUTHOR'S ORGANIZ ATION 12/09/2024 [facility] DATE CREATED AUTHOR AUTHOR'S ORGANIZ ATION 12/10/2024 [facility] DATE CREATED AUTHOR AUTHOR'S ORGANIZ ATION 12/12/2024 [facility] FOR RECORDS PERTAINING TO PATIENTS WHO ARE [...] BE BASED ON THE PRIMARY CLINICAL RECORDS. [employer] [facility]. provides no warranty or guarantee of the accuracy or completeness of information in this document.
== END 2024-12-13 09:32 | disposition home or self-care (01) ==
LOC: CARD 09:32
PROVIDERS: PCP Family Medicine; Visit Provider Family Medicine
DX: R00.2 Palpitations (principal); R03.0 Elevated blood-pressure reading, without diagnosis of hypertension
CPT/HCPCS: 93246

== ENCOUNTER 2024-12-13 09:59 | Outpatient (OUT) | payer BC, SELFPAY ==
--- OUTSIDE RECORDS SUMMARY | 2024-12-13 10:06 | XMS_ITS | CCD ---
Author Organization [facility] Informat ion Partnership [facility] Care Team Providers Care Medical Service Technician Name Role Phone Roshni Dow Unavailable Maxime Hardy Unavailable MD Fatemeh Neil Primary Care Provider [phone] MD Orlando Pereira Attending Provider Orlando Pereira Unavailable MD Fatemeh Neil Primary Care Provider [phone] DO Edmar Khan Emergency Provider [phone] [address], DR MONICA Vargas Admitting Unavailabl e [...] / Trimethoprim Drug Allergy 09-20-20 24 Anaphylaxis [employer] Other (7 sources) Sulfamethoxazole; Translations: [sulfamethoxazole] Drug Allergy 07-27-20 21 Swelling of Lip/Tongue/Thr oat [facility] (7 sources) Trimethoprim; Translations: [trimethoprim] Drug Allergy 07-27-20 21 Swelling of Lip/Tongue/Thr oat [facility] (2 sources) Sulfamethoxazole / Trimethoprim; Translations: [Bactrim] Drug Allergy 11-09-19 15 [facility] Repository Medications Current Medications Medication Drug Class(es) Dates Sig (Normalized) Sig (Original) acetaminophen 325 mg / HYDROcodone bitartrate 5 mg oral tablet (2 sources) Opioid Agonist Start: 07-27-2021 take 1 tablet by mouth every six hours Hydrocodone-Acetam inophen Active 1 TAB PO Q6H 10 3 July 27, 2021 [id number] 200 actuat albuterol 0.09 mg/actuat metered dose [...] By: #### [id number] #### [facility] [address], [address] [place] [address] Jewel Hole Driller: Isiah Loaiza MD [place] 01-01-2024 Consent [id number]#[id number] Normal [facility] Registrationon 01-01-2024 Registration [id number]#[id number] Normal [facility] Alanine aminotransferase [En zymatic activity/volume] in Serum or PlasmaOrdered By: Edmar Khan on 03-11-2023 ALT [Catalytic activity/Vol] 12 U/L 7-52 [facility] Albumin [Mass/volume] in Ser um or Plasma by Bromocresol green (BCG) dye binding methoOrdered By: Edmar Khan on 03-11-2023 Albumin BCG dye [Mass/Vol] 4.2 g/dL 3.5-5.7 [facility] Alkaline phosphatase [Enzyma tic activity/volume] in Serum or PlasmaOrdered By: Edmar Khan on 03-11-2023 ALP [Catalytic activity/Vol] 52 U/L 34-104 [facility] Aspartate aminotransferase [ Enzymatic activity/volume] in Serum or PlasmaOrdered By: Edmar Khan on 03-11-2023 AST [Catalytic activity/Vol] 22 U/L 13-39 [facility] Basophils Auto (Bld) [#/Vol] Ordered By: Edmar Khan on 03-11-2023 Basophils (Bld) [#/Vol] 0.1 10*3/uL 0.0-0.2 [facility] Basophils/100 WBC Auto (Bld) Ordered By: Edmar Khan on 03-11-2023 Basophils/100 WBC (Bld) 1.0 % . [facility] Bilirubin Test strip Ql (U)O rdered By: PROVIDER TEMP on 03-11-2023 Bilirubin Ql (U) Negative Negative [facility] Bilirubin.direct [Mass/volum e] in Serum or PlasmaOrdered By: Edmar Khan on 03-11-2023 Bilirubin.direct [Mass/Vol] 0.00 mg/dL 0.03-0.18 [facility] Comment on above: If the DBIL is less than 0.1, IBIL is not able to becalculated. Bilirubin.total [Mass/volume ] in Serum or PlasmaOrdered By: Edmar Khan on 03-11-2023 Bilirubin [Mass/Vol] 0.4 mg/dL 0.3-1.0 [facility] Calcium [Mass/volume] in Ser um or PlasmaOrdered By: Edmar Khan on 03-11-2023 Calcium [Mass/Vol] 9.0 mg/dL 8.6-10.3 [facility] Carbon dioxide, total [Moles /volume] in Serum or PlasmaOrdered By: Edmar Khan on 03-11-2023 CO2 [Moles/Vol] 20.2 mmol/L 21.0-31.0 [facility] Chloride [Moles/volume] in S nikolas or PlasmaOrdered By: Edmar Khan on 03-11-2023 Chloride [Moles/Vol] 106 mmol/L 98-107 [facility] Color Auto (U)Ordered By: CELESTE THOMAS TEMJorge on 03-11-2023 Color (U) Yellow Yellow [facility] Creatinine [Mass/volume] in Serum or PlasmaOrdered By: Edmar Khan on 03-11-2023 Creatinine [Mass/Vol] 0.60 mg/dL 0.60-1.20 [facility] Eosinophils Auto (Bld) [#/Vo l]Ordered By: Edmar Khan on 03-11-2023 Eosinophils (Bld) [#/Vol] 0.3 10*3/uL 0.0-0.45 [facility] Eosinophils/100 WBC Auto (Bl d)Ordered By: Edmar Khan on 03-11-2023 Eosinophils/100 WBC (Bld) 5.0 % . [facility] Erythrocyte distribution wid th Auto (RBC) [Ratio]Ordered By: Edmar Khan on 03-11-2023 Erythrocyte distribution width (RBC) [Ratio] 14.9 % 11.9-15.3 [facility] Globulin Calc (S) [Mass/Vol] Ordered By: Edmar Khan on 03-11-2023 Globulin (S) [Mass/Vol] 2.4 g/dL [facility] Glucose [Mass/volume] in Ser um or PlasmaOrdered By: Edmar Khan on 03-11-2023 Glucose [Mass/Vol] 78 mg/dL 70-100 [facility] Comment on above: ADA recommended refe rence rangeRandom Glucose Reference Range is dependent on time and content of last meal. Glucose of more than 200 mg/dL in a nonstressed, ambulatory subject supports the diagnosis of Diabetes Mellitus. HCG ( test) IA.rapi d Ql (U)Ordered By: PROVIDER RACHAEL on 03-11-2023 HCG ( test) Ql (U) Negative [facility] Hematocrit Auto (Bld) [Volum e fraction]Ordered By: Edmar Khan on 03-11-2023 Hematocrit (Bld) [Volume fraction] 45.5 % 34.0-46.4 [facility] Hemoglobin [Mass/volume] in BloodOrdered By: Edmar Khan on 03-11-2023 Hemoglobin (Bld) [Mass/Vol] 15.1 g/dL 11.8-15.4 [facility] Ketones Auto test strip (U) [Mass/Vol]Ordered By: PROVIDER RACHAEL on 03-11-2023 Ketones (U) [Mass/Vol] Negative [facility] Leukocytes [#/volume] correc mariana for nucleated erythrocytes in Blood by Automated counOrdered By: Edmar Khan on 03-11-2023 WBC corrected for nucl RBC Auto (Bld) [#/Vol] 6.7 10*3/uL 3.8-11.6 [facility] Lipase [Enzymatic activity/v olume] in Serum or PlasmaOrdered By: Edmar Khan on 03-11-2023 Lipase [Catalytic activity/Vol] 10.0 U/L 11.0-82.0 [facility] Lymphocytes Auto (Bld) [#/Vo l]Ordered By: Edmar Khan on 03-11-2023 Lymphocytes (Bld) [#/Vol] 2.5 10*3/uL 1.00-4.8 [facility] Lymphocytes/100 WBC Auto (Bl d)Ordered By: Edmar Khan on 03-11-2023 Lymphocytes/100 WBC (Bld) 36.8 % . [facility] MCH Auto (RBC) [Entitic mass ]Ordered By: Edmar Khan on 03-11-2023 MCH (RBC) [Entitic mass] 28.0 pg 24.7-34.3 [facility] MCHC Auto (RBC) [Mass/Vol]Or dered By: Edmar Khan on 03-11-2023 MCHC (RBC) [Mass/Vol] 33.1 g/dL 32.0-35.0 [facility] MCV Auto (RBC) [Entitic vol] Ordered By: Edmar Khan on 03-11-2023 MCV (RBC) [Entitic vol] 84.7 fL 80-100 [facility] Monocyte distribution width [Entitic volume] in Blood by AutomatedOrdered By: Edmar Khan on 03-11-2023 Monocyte distribution width Auto (Bld) [Entitic vol] 15.29 % 0.00-20.00 [facility] Monocytes Auto (Bld) [#/Vol] Ordered By: Edmar Khan on 03-11-2023 Monocytes (Bld) [#/Vol] 0.5 10*3/uL 0.0-0.8 [facility] Monocytes/100 WBC Auto (Bld) Ordered By: Edmar Khan on 03-11-2023 Monocytes/100 WBC (Bld) 8.0 % . [facility] Neutrophils Auto (Bld) [#/Vo l]Ordered By: Edmar Khan on 03-11-2023 Neutrophils (Bld) [#/Vol] 3.3 10*3/uL 1.8-7.7 [facility] Neutrophils/100 WBC Auto (Bl d)Ordered By: Edmar Khan on 05-09-2023 Neutrophils/100 WBC (Bld) 49.2 % . [facility] Nitrite Test strip Ql (U)Ord ered By: PROVIDER TEMP on 03-11-2023 Nitrite Ql (U) Negative Negative [facility] No Panel InformationOrdered By: Edmar Khan on 03-11-2023 Estimated GFR (CKD-EPI) > 60.0 mL/Min [facility] Creatinine Clearance (Chem 144.87 [facility] Nucleated erythrocytes [Pres ence] in Blood by Automated countOrdered By: Edmar Khan on 03-11-2023 Nucleated RBC Auto Ql (Bld) 0.2 /100{WBC} 0-0.5 [facility] Platelet mean volume Auto (B ld) [Entitic vol]Ordered By: Edmar Khan on 03-11-2023 Platelet mean volume (Bld) [Entitic vol] 7.2 fL 6.3-10.7 [facility] Platelets Auto (Bld) [#/Vol] Ordered By: Edmar Khan on 03-11-2023 Platelets (Bld) [#/Vol] 215 10*3/uL 150-450 [facility] Potassium [Moles/volume] in Serum or PlasmaOrdered By: Edmar Khan on 03-11-2023 Potassium [Moles/Vol] 3.8 mmol/L 3.5-5.1 [facility] Protein Auto test strip (U) [Mass/Vol]Ordered By: PROVIDER TEMP on 03-11-2023 Protein (U) [Mass/Vol] Negative Negative [facility] Protein [Mass/volume] in Ser um or PlasmaOrdered By: Edmar Khan on 03-11-2023 Protein [Mass/Vol] 6.6 g/dL 6.4-8.9 [facility] RBC Auto (Bld) [#/Vol]Ordere d By: Edmar Khan on 03-11-2023 RBC (Bld) [#/Vol] 5.38 10*6/uL 3.60-5.00 [facility] Serum or plasma albumin/glob ulin mass ratioOrdered By: Edmar Khan on 03-11-2023 Albumin/Globulin [Mass ratio] 1.8 {ratio} [facility] Serum or plasma anion gap de terminationOrdered By: Edmar Khan on 03-11-2023 Anion gap [Moles/Vol] 13.6 mmol/L 6.0-15.0 [facility] Serum or plasma non-glucuron idated bilirubin measurement (mass/volume)Ordered By: Edmar Khan on 03-11-2023 Bilirubin.indirect [Mass/Vol] 0.4 mg/dL [facility] Sodium [Moles/volume] in Ser um or PlasmaOrdered By: Edmar Khan on 03-11-2023 Sodium [Moles/Vol] 136 mmol/L 136-145 [facility] Specific gravity Auto test s trip (U) [Rel density]Ordered By: PROVIDER TEMP on 03-11-2023 Specific gravity (U) [Rel density] 1.016 1.001-1.030 [facility] Urea nitrogen [Mass/volume] in Serum or PlasmaOrdered By: Edmar Khan on 03-11-2023 Urea nitrogen [Mass/Vol] 6 mg/dL 7-25 [facility] Urine clarity by refractomet ry automatedOrdered By: PROVIDER TEMP on 03-11-2023 Clarity Refractometry automated (U) Clear Clear [facility] Urine glucose measurement by automated test strip (mass/volume)Ordered By: PROVIDER TEMP on 03-11-2023 Glucose Auto test strip (U) [Mass/Vol] Normal mg/dL Normal [facility] Urine hemoglobin detection b y automated test stripOrdered By: PROVIDER TEMP on 03-11-2023 Hemoglobin Auto test strip Ql (U) Negative Negative [facility] Urine leukocyte esterase det ection by automated test stripOrdered By: PROVIDER TEMP on 03-11-2023 Leukocyte esterase Auto test strip Ql (U) Negative Negative [facility] Urobilinogen Auto test strip (U) [Mass/Vol]Ordered By: PROVIDER TEMP on 03-11-2023 Urobilinogen (U) [Mass/Vol] Normal mg/dL Normal [facility] WBC Auto (Bld) [#/Vol]Ordere d By: Edmar Khan on 03-11-2023 WBC (Bld) [#/Vol] 6.7 10*3/uL 3.8-11.6 [facility] pH Auto test strip (U)Ordere d By: PROVIDER TEMP on 03-11-2023 pH (U) 5.5 [pH] 5.0-9.0 [facility] MG MAMM RT DIAG FUon 023 MG MAMM RT DIAG FU Patient: EDMUND DUONG Exam Date: 12/25/2022 : 1990 Gender:F Ordering : DR HEMAL PARTIDA . Admission #: [id number] Family : Order #: [id number] CLICK HERE TO VIEW EXAM RADIOLOGY REPORT [...] breast cancer at age 35. LOCATION: [facility] BREAST COMPOSITION: Heterogeneously dense,which may obscure [...] M.D. on 12/25/2022 at 14:29 Normal [facility] US BREAST RIGHT LIMITEDon US BREAST RIGHT LIMITED Patient: EDMUND DUONG Exam Date: 12/25/2022 : 1990 Gender:F Ordering : DR HEMAL PARTIDA . Admission #: [id number] Family : Order #: [id number] CLICK HERE TO VIEW EXAM RADIOLOGY REPORT [...] breast cancer at age 35. LOCATION: [facility] BREAST COMPOSITION: Heterogeneously dense,which may obscure [...] M.D. on 12/25/2022 at 14:29 Normal [facility] MG MAMM SCREEN 3D HONEY CADon 12-12-2022 MG MAMM SCREEN 3D HONEY CAD Patient: EDMUND DUONG Exam Date: 12/12/2022 : 1990 Gender:F Ordering : DR KARI GIMENEZ . Admission #: [id number] Family : Order #: [id number] CLICK HERE TO VIEW EXAM RADIOLOGY REPORT [...] breast cancer at age 35. LOCATION: [facility] BREAST COMPOSITION: Heterogeneously dense,which may obscure [...] MD on 12/13/2022 at 07:33 Normal [facility] COVID-19 SOFIAOrdered By: Sparkle Pereira on 10-31-2022 SARS-CoV+SARS-CoV-2 (COVID-19) Ag IA.rapid Ql (Resp) Negative Negative [facility] Comment on above: This is a duplicate Anel SARS Antigen (VIJAY) result to be used for statistical tracking purpose only. No Panel InformationOrdered By: Orlando Pereira on 10-31-2022 SARS Antigen (LFIA) [facility] US THYROIDon 10-15-2022 US THYROID EXAMINATION: US [...] JENNIFER DONIS Date: 2022-10-15 07:07 Normal [facility] US EXT NON VASC LIMITED RTon [...] JENNIFER DONIS Date: 2022-06-10 07:41 Normal [facility] XR ANKLE RT MIN 3 VIEWSon [...] LD BLAS Date: 2022-04-28 14:30 Normal [facility] XR knee RT 4V*on 02-18-2022 XR knee RT 4V* [facility] [employer] Other XR knee RT 4V* [facility] [employer] Other XR knee RT 4V* [address] [facility] [employer] Other XR knee RT 4V* PACO [place] [id number] No rt [employer] Other XR knee RT 4V* XRay Report [employer] Other XR knee RT 4V* Signed [employer] Other XR knee RT 4V* Patient: Edmund Duong MR#: [id number] [place] [employer] Other XR knee RT 4V* : 1990 Acct:[id number] [employer] Other XR knee RT 4V* Age/Sex: 32 / F ADM Date: 02/18/22 [employer] Other XR knee RT 4V* Loc: [id number] Room: Type: [facility] [employer] Other XR knee RT 4V* Attending Dr: Maxime Hardy [facility] [employer] Other XR knee RT 4V* Ordering Provider: Maxime Hardy [facility] [employer] Other XR knee RT 4V* Date of Service: 02/18/22 [employer] Other XR knee RT 4V* XR/XR knee RT 4V*: PAIN M25.561 [employer] Other XR knee RT 4V* Copies to: Maxime Hardy [facility] [employer] Other XR knee RT 4V* RIGHT KNEE - 4 views [employer] Other XR knee RT 4V* CLINICAL HISTORY: Patient was doing squats a couple days ago and felt pain at the right knee [employer] Other XR knee RT 4V* laterally. [employer] Other XR knee RT 4V* COMPARISON: None [employer] Other XR knee RT 4V* AP, lateral and both oblique views were obtained. There is no evidence of fracture or dislocation. [employer] Other XR knee RT 4V* No disproportionate joint space narrowing is present there is minimal marginal spurring, greatest at [employer] Other XR knee RT 4V* the posterior patella. No significant knee effusion or focal soft tissue swelling is identified. [employer] Other XR knee RT 4V* XR/XR knee RT 4V* [employer] Other XR knee RT 4V* IMPRESSION: [employer] Other XR knee RT 4V* NO ACUTE BONY FINDINGS. [employer] Other XR knee RT 4V* Impression dictated by: Kelle Gomes M.D.02/18/2022 12:32 PM [employer] Other XR knee RT 4V* Dictation Location: [place] [address] [employer] Other XR knee RT 4V* Transcribed By: KASSY 02/18/22 [facility], [facility]–1983 [employer] Other XR knee RT 4V* Dictated By: Kelle Gomes MD 02/18/22 [facility] [employer] Other XR knee RT 4V* Signed By: [employer] Other XR knee RT 4V* 02/18/22 [facility], [facility] [employer] Other Vital Signs Date Time Vital Sign Value Performing Clinician Facility 12-07-2024 14:23-0500 Body height 171.7 cm Fatemeh Neil MD Work Phone: [facility] 12-07-2024 14:23-0500 Body mass index (BMI) [Ratio] 29.54 kg/m2 Fatemeh Neil MD Work Phone: [facility] 12-07-2024 14:23-0500 Body weight 87.09 kg Fatemeh Neil MD Work Phone: [facility] 12-07-2024 14:23-0500 Diastolic blood pressure 88 mm[Hg] Fatemeh Neil MD Work Phone: [facility] 12-07-2024 14:23-0500 Heart rate 77 /min Fatemeh Neil MD Work Phone: [facility] 12-07-2024 14:23-0500 SaO2% (BldA) [Mass fraction] 97 % Fatemeh Neil MD Work Phone: [facility] 12-07-2024 14:23-0500 Systolic blood pressure 132 mm[Hg] Fatemeh Neil MD Work Phone: [facility] 09-20-2024 15:19-0500 Body height 171.7 cm Kelle Hemmer PA Work Phone: [facility] 09-20-2024 15:19-0500 Body mass index (BMI) [Ratio] 27.91 kg/m2 Kelle Hemmer PA Work Phone: [facility] 09-20-2024 15:19-0500 Body temperature 97.3 [degF] Kelle Hemmer PA Work Phone: [facility] 09-20-2024 15:19-0500 Body weight 82.28 kg Kelle Hemmer PA Work Phone: [facility] 09-20-2024 15:19-0500 Diastolic blood pressure 78 mm[Hg] Kelle Hemmer PA Work Phone: [facility] 09-20-2024 15:19-0500 Heart rate 90 /min Kelle Hemmer PA Work Phone: [facility] 09-20-2024 15:19-0500 Respiratory rate 16 /min Kelle Hemmer PA Work Phone: [facility] 09-20-2024 15:19-0500 SaO2% (BldA) [Mass fraction] 92 % Kelle Hemmer PA Work Phone: [facility] 09-20-2024 15:19-0500 Systolic blood pressure 117 mm[Hg] Kelle Hemmer PA Work Phone: [facility] 03-11-2023 17:05-0400 Diastolic blood pressure 64 mm[Hg] MD Fatemeh Neil Work Phone: [facility] 03-11-2023 17:05-0400 Heart rate 68 /min MD Fatemeh Neil Work Phone: [facility] 03-11-2023 17:05-0400 Respiratory rate 18 /min MD Fatemeh Neil Work Phone: [facility] 03-11-2023 17:05-0400 SaO2% (BldA) [Mass fraction] 97 % MD Fatemeh Neil Work Phone: [facility] 03-11-2023 17:05-0400 Systolic blood pressure 108 mm[Hg] MD Fatemeh Neil Work Phone: [facility] 03-11-2023 14:59-0400 Body temperature 97.8 [degF] MD Fatemeh Neil Work Phone: [facility] 03-11-2023 13:09-0400 Body height 170.18 cm MD Fatemeh Neil Work Phone: [facility] 03-11-2023 13:09-0400 Body weight 82.9 kg MD Fatemeh Neil Work Phone: [facility] 02-18-2022 12:20-0400 Body height 170.18 cm Maxime Hardy Other [employer] Other 02-18-2022 12:20-0400 Body mass index (BMI) [Ratio] 28.97 kg/m2 Maxime Hardy Other [employer] Other 02-18-2022 12:20-0400 Body temperature 98.7 [degF] Maxime Hardy Other [employer] Other 02-18-2022 12:20-0400 Body weight 83.92 kg Maxime Hardy Other [employer] Other 02-18-2022 12:20-0400 Respiratory rate 18 /min Maxime Hardy Other [employer] Other 02-18-2022 12:20-0400 SaO2% (BldA) [Mass fraction] 98 % Maxime Hardy Other [employer] Other 12-01-2021 12:00-0500 Body height 170.18 cm Roshni Dow Other [employer] Other 12-01-2021 12:00-0500 Body mass index (BMI) [Ratio] 31.48 kg/m2 Roshni Victor M Other [employer] Other 12-01-2021 12:00-0500 Body temperature 97.8 [degF] Roshni Victor M Other [employer] Other 12-01-2021 12:00-0500 Body weight 91.17 kg Roshni Victor M Other [employer] Other 12-01-2021 12:00-0500 Diastolic blood pressure 74 mm[Hg] Roshni Dow Other [employer] Other 12-01-2021 12:00-0500 Respiratory rate 18 /min Roshni Dow Other [employer] Other 12-01-2021 12:00-0500 SaO2% (BldA) [Mass fraction] 99 % Roshni Dow Other [employer] Other 12-01-2021 12:00-0500 Systolic blood pressure 146 mm[Hg] Roshni Dow Other [employer] Other Encounters Encounter Date Encounter Type Care [...] (Primary Dx) Start: 01-01-2024 End: 2024 ambulatory [facility] Facility:[facility] Start: 03-11-2023 End: 03-11-2023 Emergency department patient visit MD Fatemeh Neil Work Phone: [facility] Work Phone: Start: 12-25-2022 End: 12-26-[address] FATEMEH NEIL Facility: Start: 12-12-2022 End: 12-13-[address] FATEMEH NEIL Facility:[facility] Start: 11-17-2022 End: 11-17-[address] MONICA FREITAS Facility:[facility] Start: 10-31-2022 End: 10-31-2022 ambulatory MD Fatemeh Neil Work Phone: [facility] Work Phone: Start: 10-31-2022 End: 10-31-2022 Patient encounter procedure MD Fatemeh Neil Work Phone: [facility] Work Phone: Start: 10-18-2022 End: 10-18-2022 ambulatory Orlando Pereira Other [employer] Other Start: 10-18-2022 Telephone encounter Orlando Vargas Cardboard Inserter Start: 10-14-2022 End: 10-15-[address] FATEMEH NEIL Facility:[facility] Start: 06-07-2022 End: 06-08-[address] FATEMEH NEIL Facility:[facility] Start: 05-30-[address] FATEMEH NEIL Facility: [facility] Start: 04-28-2022 End: 04-28-[address] FATEMEH NEIL Facility:[facility] Start: 03-11-2022 End: 03-11-2022 ambulatory Maxime Hardy Other [employer] Other Start: 03-11-2022 Telephone encounter [facility] [place] Start: 02-18-2022 End: 02-18-2022 ambulatory Maxime Hardy Other [employer] Other Start: 02-18-2022 Office outpatient vi sit 25 minutes Maxime Hardy [facility] [address] Start: 12-01-2021 End: 12-01-2021 ambulatory Roshni Dow Other [employer] Other Start: 12-01-2021 Office outpatient ne w [...] procedure 12/17/2024 10:00 AM EST [facility] [address] [place] [id number] Kelle Reynolds PA [address] [place] [address] [facility] Start: 12-07-2024 End: 12-07-2025 Holter monitor study Holter monitor Imaging Routine Palpitations Expected: 12/07/2024 (Approximate), Expires: 12/07/2025 [facility] Work Phone: Comment on above: Expected: 12/07/2024 (Approximate), Expires: 12/07/2025 Start: 12-07-2024 End: 12-07-2025 TSH W/REFLEX TO FT4 TSH W/REFLEX TO FT4 Lab Routine Palpitations Expected: 12/07/2024 (Approximate), Expires: 12/07/2025 [facility] Comment on above: Expected: 12/07/2024 (Approximate), Expires: 12/07/2025 Start: 07-04-2024 Influenza vaccination Influenza Vacc ine (#1) [facility] Start: 03-11-2023 CT of abdomen and pelvis without contrast CT abdomen pelvis wo con [facility] Start: 01-01-2018 Screening for malign ant neoplasm of cervix [facility] Start: 01-01-2009 Screening for malign ant neoplasm of cervix Pap Smear [facility] Patient Education Abdominal Pain , Adult ED [facility] Work Phone: Patient referral [facility] Work Phone: Payers Date Payer Category Payer Self-pay [id number] 2022 [employer] [id number] 2017 Unknown 1988 Unknown [id number] [id number]. 593 1988 Unknown [id number] 2.16.840.1.308879.3.579.2. 593 1988 Unknown [id number] 2.16.840.1.038834.3.579.2. 593 1988 Unknown [id number] 2.16.840.1.306504.3.579.2. 593 1988 Unknown [id number] 2.16.840.1.140542.3.579.2. 593 1988 Unknown [id number] 2.16.840.1.121640.3.579.2. 593 1988 Unknown [id number] 2.16.840.1.701964.3.579.2. 593 1988 Unknown [id number] 2.16.840.1.832506.3.579.2. 727 1988 Unknown [id number] 2.16.840.1.708037.3.579.2. 1259 1988 Unknown [id number] 2.16.840.1.454776.3.579.2. 1259 1959 [employer] [place] Blue [facility] TCH21 [id number] [id number] 1959 Unknown [id number] Unknown [facility] [id number] Unknown [id number] [id number]. 531 Social History Date Type Detail Facility Start: 09-20-2024 End: 12-07-[address] [facility] [employer] Other Start: 07-27-2021 End: 03-11-2023 Tobacco smoking status [facility] Smoker (finding) [facility] Start: 1990 Sex Assigned At Female F [facility] Start: 09-20-2024 Tobacco smoking stat [facility] Smokes tobacco daily [facility] History of tobacco use Cigarette Smoker [...] smoked daily. Discussed potential health risks of jail smoking. Patient voiced understanding. Benefits of cessation, [...] day Flowsheet Row Documentation from 12/03/2024 in [facility] [facility] with Deyanira Barajas MA Hospital Information ED, Hospital or [facility] Facility Discharge? ED Patient has been contacted within 1 week of being seen in the ED Yes Diagnosis palpatations Discharge Date 12/02/24 Discharged To: Home Setting Discharge Hospital [facility] Engagement Call Start Time 734 Admission [...] smoked daily. 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 Patient voiced understanding. Benefits of cessation, [...] sore from coughing, wheezing, SOB. Went to [facility] ER on 09/16/24 Dx. URI Rx'd [...] Wellness, Fasting Labs. documented in this encounter [facility] Healthcare Evaluation note 02-18-2022 Note Date & [...] Jason as directed. I will have my appointment scheduler call you to make an appointment [...] She understands and agrees with the plan. [facility] Other Evaluation note 12-01-2021 Note Date & Type Note Facility 12-01-2021 Evaluation note Encounter Date Diagnosis Assessment Notes Nov, Tooth infection (ICD-10 - K04.7) Take medications as directed.Highly encourage patient to contact dentist AYAN for further treatment of infection. Do not take OTC medications like ibuprofen with prescriptions [facility] Other Evaluation note Note Date & Type Note Facility Evaluation note No Information [facility] Other Evaluation note Note Date & Type Note Facility Evaluation note No assessment information [facility] Work Phone: Evaluation note Note Date [...] from neck Hospitalization History see surgical hx. [facility] Other Hospital Discharge instructions Note Date & Type Note Facility Hospital Discharge instructions Additional Instructions Follow-up with your primary care doctor Return to ED if develop worsening symptoms or concerns [facility] Work Phone: Reason for Referral Reason *Waiting for appt Needs to follow up with Dr. Jason for R. knee sprain. Diagnosis 1 Sprain of right knee , unspecified ligament, initial encounter (S83.91XA) Referral Organization [facility] Urgent Care Sa elizabeth Referring Provider First Name Maxime Referring Provider Last Name Raceland Referring Provider Specialty Nurse Eva itionedanielle Referred Organization [facility] Family Medicin e Rick Referred Provider Chris Jason Referred Address [address] [place], [place] [address] [place],[address] Referred Provider Specialty Sport Medici ne Referral [...] Active Edmar Khan DO Emergency Provider Active Medical Service Technician Relationship Specialty Start Date End Date Fatemeh Neil MD [address] [place] [address] PCP - General Family Medicine 03/11/23 Medical Service Technician Relationship Specialty Start Date End Date Fatemeh Neil MD [address] [place], [place] [id number] PCP - General Family Medicine 03/11/23 Goals (unrecognized section and content) Goals may be documented in a n alternate section INFORMATION SOURCE (unrecogn ized section and content) DATE CREATED AUTHOR 03/13/2023 [facility] DATE CREATED AUTHOR AUTHOR'S ORGANIZ ATION 01/04/2024 [facility] DATE CREATED AUTHOR AUTHOR'S ORGANIZ ATION 12/09/2024 [facility] DATE CREATED AUTHOR AUTHOR'S ORGANIZ ATION 12/10/2024 [facility] DATE CREATED AUTHOR AUTHOR'S ORGANIZ [...] BE BASED ON THE PRIMARY CLINICAL RECORDS. [employer] [facility]. provides no warranty or guarantee of the accuracy or completeness of information in this document.
[2024-12-13 10:48] LABS: Basophils Absolute Auto 0.1 10^3/uL (0.0-0.1); Basophils Percent Auto 1.4 % (0.2-2.0); Eosinophils Absolute Auto 0.3 10^3/uL (0.0-0.7); Eosinophils Percent Auto 5.6 % (0.9-7.0); Hematocrit 42.3 % (36.0-48.0); Hemoglobin 13.9 g/dL (12.0-16.0); Lymphocytes Absolute Auto 1.8 10^3/uL (1.2-3.8); Lymphocytes Percent Auto 35.6 % (20.5-60.0); Mean Corpuscular HGB Conc 32.9 g/dL (29.9-35.2); Mean Corpuscular Hemoglobin 28.6 pg (26.7-34.0); Mean Platelet Volume 8.9 fL (9.5-13.5); Monocytes Absolute Auto 0.4 10^3/uL (0.3-0.8); Monocytes Percent Auto 7.5 % (1.7-12.0); Neutrophils Absolute Auto 2.6 10^3/uL (1.4-6.5); Neutrophils Percent Auto 49.9 % (43.0-75.0); Platelet Count 271 10^3/uL (150-450); Red Blood Count 4.86 10^6/uL (4.20-5.40); Red Cell Distribution Width 13.3 % (11.0-15.0); White Blood Count 5.2 10^3/uL (4.0-11.0)
[2024-12-13 11:15] LABS: Alanine Aminotransferase 20 U/L (14-59); Albumin Globulin Ratio 1.3; Albumin Level 3.7 g/dL (3.4-5.0); Alkaline Phosphatase 65 U/L (46-116); Anion Gap 11.7; Aspartate Amino Transferase 20 U/L (15-37); BUN Creatinine Ratio 6.8; Bilirubin Total 0.4 mg/dL (0.2-1.0); Calcium 9.2 mg/dL (8.5-10.1); Carbon Dioxide 30.5 mmol/L (21.0-32.0); Chloride 104 mmol/L (98-107); Estimated GFR (African America >60 (>=60 mL/min/1.73m^2); Estimated GFR (Non-African Ame >60 (>=60 mL/min/1.73m^2); Globulin 2.9 g/dL; Glucose 91 mg/dL (74-106); Potassium 4.2 mmol/L (3.5-5.1); Sodium 142 mmol/L (136-145); Total Protein 6.6 g/dL (6.4-8.2)
== END 2024-12-13 10:00 | disposition home or self-care (01) ==
PROVIDERS: PCP Family Medicine; Visit Provider Nurse Practitioner Family
DX: R00.2 Palpitations (principal); F10.20 Alcohol dependence, uncomplicated; F11.20 Opioid dependence, uncomplicated; F11.21 Opioid dependence, in remission; K59.03 Drug induced constipation; F41.1 Generalized anxiety disorder; R03.0 Elevated blood-pressure reading, without diagnosis of hypertension
CPT/HCPCS: 36415; 80053; 85025; 93246

== ENCOUNTER 2025-09-16 07:28 | Emergency (ER) | payer BC, SELFPAY ==
--- OUTSIDE RECORDS SUMMARY | 2020-10-09 10:00 | XMS_ITS | Continuity of Care Document ---
Author Organization [facility] Address [address] [place] [address] Phone Care Team Providers Care Tax Map Technician Name Role Phone Romel WARE Judson Unavailable Unavailable Procedures Procedure Date Covid Testing [facility] Advance Directives Directive Yes / No Effective Date File Name No Information Encounters Encounter Description Practice Location Reason(s) For Visit Diagnoses Date Provider Providers Copied on Encounter [facility], [address], [place], [id number], [place] tel:[phone] COVID [facility] Encounter for screening for other viral disease Romel Barcenas. [address], [place], [id number], [place]. tel:[phone] Family History Family Member Type Diagnosis Age At Onset No Information Payers Payer name Insurance type Covered libertarian ID Authoriza tipancho(s) [employer] CI [id number] Social History Type Description Quantity Date Captured Comments Alcohol Use Details Unknown Caffeine Use Details Unknown Tobacco Use Status No Information Smoking Status No Information Sex Female Sexual Orientation Straight or heterosexual Gender Identity Female Chief Complaint And Reason For Visit No Information Reason For Referral Reason For Referral No Information History Of Present Illness Encounter Date Complaint History Of Prese nt Illness No Information Functional Status Date Functional Assessmen t No Information Instructions Date Instruction Additional Infor mation No Information Assessments Type Assessment Date assessment Encounter for screening for othe r viral disease Patient Care Teams Name Effective Dates (start - stop) Status Members No Information
[2025-09-16 07:33] VITALS: BP 153/74; PULSE 108; TEMP 36.4; O2SAT 97; BMI 31.2
[2025-09-16 07:40] VITALS: O2SAT 97
--- NOTE | 2025-09-16 07:45 | XR_ITS ---
The [address] [address] Patient Name: EDMUND DUONG MRN: [id number] date: 1990 Sex: F Assigned Patient Location: ED.MAIN Current Patient Location: ED.MAIN Accession/Order Number: [id number] Exam Date: 09/16/2025 08:05 Report Date: 09/16/2025 08:45 At the request of: TRACIE MILLER MD Procedure: XR chest 1V PORTABLE AP ERECT CHEST 0748 hours CLINICAL HISTORY: Shortness breath and cold symptoms. COMPARISON: 12/02/2024 There is artifact overlying the right chest. The heart is within normal limits. There is no vascular congestion. No consolidation is noted. There is no effusion or pneumothorax. Tiny endplate spurs are seen. XR/XR chest 1V IMPRESSION: NO ACUTE FINDINGS Impression dictated by: Kelle Gomes M.D. 09/16/2025 8:45 AM Dictation Location: [place] [address] Electronically authenticated by: [id number] Y Date: 09/16/2025 08:45
--- NOTE | 2025-09-16 07:53 | ED_ITS ---
HPI - URI/Sore Throat General Chief Complaint: Upper Respiratory Infection Stated Complaint: urti complaints Time Seen by Provider: 09/16/25 07:37 Source: patient Limitations: no limitations History of Present Illness HPI Narrative: The patient is a 35-year-old female who is presented to the ER after she was already getting evaluated since almost at the end of August for asthma exacerbation with multiple treatment with prednisone as well as a Z-Figueroa that did not help her. The patient has been using her inhaler frequently during the day with no improvement. She denies any fever or chills she denies any chest pain nausea vomiting or diarrhea she is just complaining of cough and difficulty breathing with wheezing.. The patient denies any other concerns She is a smoker of cigarettes 1 pack of cigarette daily The patient denies any history of asthma Related Data Home Medications ?Medication ?Instructions ?Recorded ?Confirmed buprenorphine 8 mg-naloxone 2 mg 1 film sublingual Q24 H 09/16/25 09/16/25 sublingual film Previous Rx's ?Medication ?Instructions ?Recorded albuterol sulfate 90 mcg/actuation 2 inh inhalation Q4 H PRN shortness 09/16/24 aerosol inhaler of breath or wheezing #8.5 g mercedes fluticasone 250 mcg-salmeterol 50 1 inh inhalation BID #60 ea 09/16/25 mcg/dose blistr powdr for inhalation (Advair Diskus) prednisone 20 mg tablet 40 mg (2 x 20 mg) PO DAILY 5 days 09/16/25 #10 tabs Allergies Allergy/AdvReac Type Severity Reaction Status Date / Time amoxicillin (From Augmentin) Allergy Mild Anaphylaxis Verified 09/16/24 00:49 clavulanic acid (From Allergy Mild Anaphylaxis Verified 09/16/24 00:49 Augmentin) Review of Systems ROS Status of ROS 10 or more systems reviewed and unremark able except as noted in history and below [facility] PFS Social History Little interest or pleasure in doing things: not at all Feeling down, depressed, or hopeless: not at all Exam Narrative Exam Narrative: Nurses notes and vital signs reviewed and patient is not hypoxic. General: Well-appearing and in no apparent distress. Skin: Warm, dry, no pallor noted. No rash. Head: Normocephalic, atraumatic. Neck: Supple, non-tender. Cardiovascular: Regular Rate and Rhythm without murmur, gallop or rub. Respiratory: No accessory muscle use or respiratory distress. Lungs bilateral expiratory lung wheezes in both lung johnson Back: No midline thoracic or lumbar vertebral tenderness. No CVA tenderness Musculoskeletal: normal ROM, no calf or popliteal tenderness, no lower extremity edema/swelling GI: Abdomen is soft, non-distended. Normal bowel sounds. No masses appreciated. No tenderness to palpation. No rebound, guarding, or rigidity noted. Neurological: A&O x4. No cranial nerve dysfunction observed. No truncal ataxia. Moves all extremities. Sensation intact. Psychiatric: Cooperative and interactive. Normal mood and affect. Constitutional Vital Signs, click to edit/add: Last Vital Signs Temp 97.6 F 09/16/25 07:33 Pulse 100 H 09/16/25 09:30 Resp 20 09/16/25 09:30 BP 142/74 H 09/16/25 09:30 Pulse Ox 96 09/16/25 09:30 O2 Del Method Room Air 09/16/25 09:30 Course Vital Signs Vital signs: Vital Signs Temperature 97.6 F 09/16/25 07:33 Pulse Rate 108 H 09/16/25 07:33 Respiratory Rate 20 09/16/25 07:33 Blood Pressure 153/74 H 09/16/25 07:33 Pulse Oximetry 97 09/16/25 07:33 Oxygen Delivery Method Room Air 09/16/25 07:33 Temperature 97.6 F 09/16/25 07:33 Pulse Rate 100 H 09/16/25 09:30 Respiratory Rate 20 09/16/25 09:30 Blood Pressure 142/74 H 09/16/25 09:30 Pulse Oximetry 96 09/16/25 09:30 Oxygen Delivery Method Room Air 09/16/25 09:30 MDM - URI/Sore Throat MDM Narrative Medical decision making narrative: The patient CBC and chemistry here in the ER showed no acute pathology Chest x-ray was not show any acute pathology as well The patient presentation likely asthma exacerbation that is mild to moderate and she need further treatment other than her inhaler and the prednisone. She was treated multiple times with prednisone the last was 5 days ago after which when she stopped the medication she still have symptoms The patient right now I did explain to her the importance of avoiding cigarette smoking as well as started on prednisone albuterol and Advair referred to pulmonary as outpatient CBC noted that the patient is in a failure elevated which mostly significant of asthma The patient to come back to the ER in case of any worsening she was also provided with magnesium in the ER after which she was feeling much better Lung examination in the ER was adequate and she never had any desaturation her pulse ox The patient to follow-up with the primary care within 2 to 3 days and to come back to the ER in case of any worsening of the current symptoms or any new symptoms or concerns The respiratory therapist also educated the patient about the technique of using the inhaler and she was provided with a spacer Lab Data Labs: Lab Results 09/16/25 09/16/25 Range/Units 07:55 08:32 WBC 7.1 (4.0-11.0) 10^3/uL RBC 5.18 (4.20-5.40) 10^6/uL Hgb 15.2 (12.0-16.0) g/dL Hct 44.7 (36.0-48.0) % MCV 86.3 (81.0-99.0) fL MCH 29.3 (26.7-34.0) pg MCHC 34.0 (29.9-35.2) g/dL RDW 14.2 (11.0-15.0) % Plt Count 295 (150-450) 10^3/uL MPV 9.2 L (9.5-13.5) fL Neut % (Auto) 43.8 (43.0-75.0) % Lymph % (Auto) 26.9 (20.5-60.0) % Jewell % (Auto) 8.8 (1.7-12.0) % Eos % (Auto) 18.8 H (0.9-7.0) % Baso % (Auto) 1.4 (0.2-2.0) % Neut # (Auto) 3.1 (1.4-6.5) 10^3/uL Lymph # (Auto) 1.9 (1.2-3.8) 10^3/uL Jewell # (Auto) 0.6 (0.3-0.8) 10^3/uL Eos # (Auto) 1.3 H (0.0-0.7) 10^3/uL Baso # (Auto) 0.1 (0.0-0.1) 10^3/uL Abs Immat Gran (auto) 0.02 (0.00-0.03) 10^3/uL Imm/Tot Granulo (auto) 0.3 (0.0-0.5) % Sodium 140 (136-145) mmol/L Potassium 3.8 (3.5-5.1) mmol/L Chloride 104 (98-107) mmol/L Carbon Dioxide 26.5 (21.0-32.0) mmol/L Anion Gap 13.3 BUN 6.0 L (7.0-18.0) mg/dL Creatinine 0.70 (0.55-1.02) mg/dL Est GFR ( Amer) >60 (>=60 mL/min/1.73m^2) Est GFR (Non-Af Amer) >60 (>=60 mL/min/1.73m^2) BUN/Creatinine Ratio 8.6 Glucose 95 (74-106) mg/dL Calcium 9.2 (8.5-10.1) mg/dL Total Bilirubin 0.7 (0.2-1.0) mg/dL AST 22 (15-37) U/L ALT 19 (14-59) U/L Alkaline Phosphatase 78 (46-116) U/L Total Protein 7.1 (6.4-8.2) g/dL Albumin 3.6 (3.4-5.0) g/dL Globulin 3.5 g/dL Albumin/Globulin Ratio 1.0 Serum HCG, Qual Negative (NEGATIVE) Discharge Plan Discharge Chief Complaint: Upper Respiratory Infection Clinical Impression: Asthma exacerbation Patient Disposition: Home, Self-Care Time of Disposition Decision: 09:22 Condition: Good Prescriptions / Home Meds: New fluticasone propion-salmeterol [Advair Diskus] 250-50 mcg/dose blister with device 1 inh inhalation BID Qty: 60 0RF prednisone 20 mg tablet 40 mg PO DAILY 5 Days Qty: 10 0RF No Action albuterol sulfate 90 mcg/actuation HFA aerosol inhaler 2 inh inhalation Q4H PRN (Reason: shortness of breath or wheezing) Qty: 8.5 0RF buprenorphine-naloxone 8-2 mg film 1 film sublingual Q24H Print Language: Yakut Instructions: Asthma (DC) Referrals: IVON SINGH MD [Physician, Family Practice] - 1 week Referral Note: Tony Singh MD Pulmonary Medicine [address] [place] [address] ROXANA NEIL [Primary Care Provider, [facility]] - 1 week
--- OUTSIDE RECORDS SUMMARY | 2025-09-16 07:55 | XMS_ITS | Clinical Summary ---
Author Organization [facility] Healthcare Address [address] [place] [address] Care Team Providers Care Stunner Name Role Phone Fatemeh Ellington MD Primary Care Provider [phone] Allergies Active AllergyReactionsCriticalityNoted CvjiIndoawyoGfjrjejgmfbintof75/09/2023 Other Reaction(s): Swelling of Lip/Tongue/Throat Sulfamethoxazole-JgkzzoiqinpuDcoezrqtebcVuku72/18/3221Terczirlegfz91/09/2023 Other Reaction(s): Swelling of Lip/Tongue/Throat Medications MedicationSigDispense QuantityRefillsLast FilledStart DateEnd DateStatus Buprenorphine HCl-Naloxone HCl (Suboxone) 8-[address] 1 Film under the niupbb5409/07/2024ctive albuterol HFA 90 mcg/act inhaler Indications:Acute bronchitis, unspecified organismInhale 2 puffs every 4 (four) hours if needed for wheezing or shortness of breath 18 g 1115Active albuterol HFA 90 mcg/act inhaler Indications:Acute bronchitis, unspecified organismInhale 2 puffs every 4 (four) hours if needed for wheezing or shortness of breath 18 g 410/Discontinued(Reorder) metoprolol tartrate (Lopressor) 25 MG tablet Indications:Elevated BP without diagnosis of hypertensionTake 1 tablet (25 mg) by mouth in the morning and 1 tablet (25 mg) before bedtime. 60 tablet //Discontinued(Other) azithromycin (Zithromax) 250 MG tablet Indications:Acute bronchitis, unspecified organismTake 2 tablets (500 mg) by mouth Daily for 1 day, THEN 1 tablet (250 mg) Daily for 4 days. 6 tablet /Expired predniSONE (Deltasone) 10 MG tablet Indications:Acute bronchitis, unspecified organismTake 4 tablets (40 mg) by mouth Daily for 2 days, THEN 3 tablets (30 mg) Daily for 2 days, THEN 2 tablets (20 mg) Daily for 2 days, THEN 1 tablet (10 mg) Daily for 2 days. 20 tablet /Expired benzonatate (Tessalon) 200 MG capsule Indications:Acute coughTake 1 capsule (200 mg) by mouth 3 (three) times a day as needed for cough for up to 10 days Do notcrush or chew. 30 capsule Expired Active Problems ProblemNoted DateDiagnosed ViqrHcxfraebbsxt57/04/2025Elevated BP without diagnosis of ejyhiqmoyzgl95/04/2025 Assessment & Plan (12/07/2024 2:41 PM EST): Our specific goals, for your hypertension, is to keep your blood pressure less than 140/90, and theimportance of weight control. We made recommendations on [...] DASH diet handouts Dependence on nicotine from aspfooxevc26/04/2025 Assessment & Plan (12/07/2024 2:43 PM EST): Discussed smoking cessation with the patient. Encouraged patient to try to cut back gradually and soon quit smoking. Discussed ways to quit smoking including gum, patches, medication, and gradually reducing the number of cigarettes smoked daily. 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 Patient voiced understanding. Benefits of cessation, both health and financial, were reviewed. Abdominal pain09/20/2024bnormal /18/2024hronic mzminwg6709/20/2024 Difficulty nixljvxawc86/18/3816Aeuadrvtrgoxx64/18/2024Hyperparathyroidism 09/20/20244033Naovqmvo93/18/2024Loss of taste09/20/2024Major depression, single dshrtrf0109/20/2024Severe acute respiratory syndrome coronavirus 2 (SARS-CoV-2) xgozdlxr23/18/9185Tlylnd68/18/2024TMJ (dislocation of temporomandibular joint) 09/20/2024bnormal immunological findings in specimens from other organs, systems and rnsjodq9701/20/2014 Encounters DateTypeDepartmentCare CqdkJdiuchwdalz25/21/2025 9:30 AM EDTOffice Visit [facility] Allan Quintana [address] [place] [phone] Ella Hinson NP Acute cough (Primary Dx); Acute bronchitis, unspecified /21/2025amboo flowsheet [facility] Allan Saavedra [address] [place] [address] Ella Hinson NP 08/23/20252930Rjdhpq05/25/2025External Result Encounter [facility] External Department Unsolicited Edilma Robles PA 07/28/2025Telephone [facility] Terry CARTER [address] [place] [address] Edilma Robles PA 07/21/2025 1:50 PM EDTOffice Visit [facility] Terry CARTER [address] [place] [address] Edilma Robles PA Breast tenderness in gqkxpz9807/21/2025amboo flowsheet [facility] Terry [address]TER [address] [place] [address] Edilma Robles PA from Last 3 Months Family History Medical HistoryRelationNameCommentsHypertensionFatherBreast cancerMotherRelation NameStatusCommentsFatherDeceasedMotherAlive Social History Tobacco UseTypesPacks/DayYears UsedDateSmoking Tobacco: Every DayCigarettes Smokeless Tobacco: Current Tobacco Cessation:Ready to Q uit: Not Asked; Counseling Given: Yes Alcohol UseStandard Drinks/WeekCommentsNever0 (1 standard drink = 0.6 oz pure alcohol)PHQ-2AnswerDate RecordedPatient Health Questionnaire-2 Lhbaz081 CommentsUnknownSex and Gender InformationValueDate RecordedSex Assigned at BirthNot on fileLegal YijJhxcof26/15/2023 6:48 PM EDTGender IdentityNot on fileSexual OrientationNot on file Last Filed Vital Signs Vital SignReadingTime TakenCommentsBlood Yhohccdb369/801 9:39 AM EDT Uloov395308/23/2025 9:39 AM NINJyvsiyehhbo09.3 ??C (97.3 ??F)09/20/2024 3:19 PM ESTRespiratory Pksq9114 9:39 AM EDTOxygen Oowblyuoer00%08/23/2025 9:39 AM EDTInhaled Oxygen Concentration--Jozpzx36.5 kg (204 lb)08/23/2025 9:39 AM EDT Tilmte892.7 cm (5' 7.6 )08/23/2025 9:39 AM EDTBody Mass Index31.391 9:39 AM EDT Plan of Treatment Health MaintenanceDue DateLast DoneCommentsPneumococcal Vaccine: Pediatrics (0 to 5 Years) and At-Risk Patients (6 to 64 Years) (1 of 2 - PCV)01/01/2007Pap Smear01/01/2009Cervical Cancer Kpozjxiap35/01/2018HPV/Djqglu2801/01/2018COVID-19 Vaccine ( season)2025Influenza Vaccine (#1)2025 Procedures Procedure NamePriorityDate/TimeAssociated DiagnosisCommentsBI MAMMOGRAM DIAGNOSTIC TOMOSYNTHESIS [place]29/25/2025 8:35 AM EDT from Last 3 Months Results * Bilateral diagnostic mammogram with tomosynthesis (07/28/2025 8:35 AM EDT) Anatomical RegionLateralityModalityBreastBilateralMammographySpecimen (Source) Anatomical Location / LateralityCollection Method / VolumeCollection Time Received Time07/28/2025 8:35 AM EDT Impressions 07/28/2025 9:18 AM EDT NO MAMMOGRAPHIC OR ULTRASOUND EVIDENCE OF MALIGNANCY. ? ROUTINE FOLLOW-UP IS RECOMMENDED IN ONE YEAR. ? RESULT CODE: 1 ? Negative ? DENSITY CODE: 2 (approximately 25-50% glandular) There are scattered areas of fibroglandular density. ? FOLLOW UP: 1YR ? The false-negative rate of mammography is approximately 10-percent. ? Management of a palpable abnormality must be based on clinical grounds. ? Impression dictated by: Mau Cruz Jr., D.O. ??07/28/2025 8:55 AM ? Dictation Location: DWS01 ? Tech: Jia Glover; Bela Barroso ? Transcribed By: ? PWS ?07/28/25 0855 ? Dictated By: ?Mau Cruz Jr, DO ?07/28/25 0835 ? Signed By: <Electronically signed by Mau Cruz Jr DO in OV> ?07/28/25 08 Narrative 07/28/2025 9:18 AM EDT [facility] ?[facility] [place] ?[address] ? [place] [address] ? Ultrasound Report ? Signed ? Patient: Nay,Dorina L ?MR#: [id number] ? : 1990 ?Acct:[id number] ? Age/Sex: 35 / F ?ADM Date: 09/25/25 ? Loc: [place] ?Room: ?Type: REG CLI ?? Attending Dr: Edilma Robles PA-C ? Ordering Provider: Edilma CARLSON ?? Date of Service: 07/28/25 ?? MM/MM diagnostic mammo BI w/CAD: N64.4 ?? ([id number]) US/US breast RT limited: N64.4 ? Copies to: Edilma CARLSON ? CLINICAL DATA: ?follow-up cyst 6:00 position right breast ? Bilateral DIAGNOSTIC MAMMOGRAM - WITH TOMOSYNTHESIS AND CAD , rightLIMITED BREAST ULTRASOUND ? COMPARISON:Mammograms dating back to 2019 ? Tomosynthesis imaging was obtained using low-dose digital technique. ?? This examination was reviewed with the aid of CAD. Additional ultrasound imaging was also obtained. ? Mammogram: ? The breasts are composed of scattered fibroglandular densities. No new areas of architectural distortion, worrisome masses or suspicious microcalcifications. ? Ultrasound: ? Imaging of the right breast at the 5-7 o'clock positions demonstrates no suspicious mass or cyst. ? US/US breast RT limited ?? Procedure Note Mau Cruz Jr., DO - 07/28/2025 [facility] [place] [address] Ultrasound Report Signed Patient: Dorina Mora LMR#: [id number] : 1990Acct:[id number] Age/Sex: 35 / FADM Date: 07/28/25 Loc: [place] Room:Type: REG CLI Attending Dr: Edilma Robles PA-C Ordering Provider: Edilma CARLSON Date of Service: 07/28/25 MM/MM diagnostic mammo BI w/CAD: N64.4 ([id number]) US/US breast RT limited: N64.4 Copies to: Edilma CARLSON CLINICAL DATA: follow-up cyst 6:00 position right breast Bilateral DIAGNOSTIC MAMMOGRAM - WITH TOMOSYNTHESIS AND CAD , rightLIMITEDBREAST ULTRASOUND COMPARISON:Mammograms dating back to 2019 Tomosynthesis imaging was obtained using low-dose digital technique.This examination was reviewed with the aid of CAD. Additional ultrasound imaging was also obtained. Mammogram: The breasts are composed of scattered fibroglandular densities. No newareas of architectural distortion, worrisome masses or suspicious microcalcifications. Ultrasound: Imaging of the right breast at the 5-7 o'clock positions demonstrates no suspicious mass or cyst. US/US breast RT limited IMPRESSION: NO MAMMOGRAPHIC OR ULTRASOUND EVIDENCE OF MALIGNANCY. ROUTINE FOLLOW-UP IS RECOMMENDED IN ONE YEAR. RESULT CODE: 1 Negative DENSITY CODE: 2 (approximately 25-50% glandular) There are scattered areasof fibroglandular density. FOLLOW UP: 1YR The false-negative rate of mammography is approximately 10-percent. Management of a palpable abnormality must be based on clinical grounds. Impression dictated by: Guillermo Myers Jr.OKarla 07/28/2025 8:55 AM Dictation Location: [facility] Tech: Jia Glover; Bela Barroso Transcribed By: KASSY 07/28/25 0855 Dictated By: Mau Cruz Jr, DO 07/28/25 0835 Signed By: <Electronically signed by Mau Cruz Jr DO inOV> 07/28/25 0855 Authorizing ProviderResult TypeResult StatusAmy Travis PAIMG BI PROCEDURESFinal Result from Last 3 Months Insurance Care Teams Team MemberRelationshipSpecialtyStart DateEnd Date Fatemeh Ellington MD [address] [facility] [address] [place] [address] [facility] - [facility]23
[2025-09-16] MEDS: IPRATROPIUM/ALBUTEROL SULFATE 3 ML AMPUL.NEB IH ×2 (07:58→09:23)
[2025-09-16 07:59] VITALS: PULSE 110; O2SAT 96
[2025-09-16] MEDS: MAGNESIUM SULFATE IN WATER 2 GM/50 ML PREMIX IV (08:08)
[2025-09-16] MEDS: METHYLPREDNISOLONE SOD SUCC PF 125 MG/2 ML VIAL IVP (08:08)
[2025-09-16 08:09] LABS: Hematocrit 44.7 % (36.0-48.0); Hemoglobin 15.2 g/dL (12.0-16.0); Immature Granulocytes Abs Auto 0.02 10^3/uL (0.00-0.03); Immature Granulocytes Pct Auto 0.3 % (0.0-0.5); Lymphocytes Absolute Auto 1.9 10^3/uL (1.2-3.8); Mean Corpuscular HGB Conc 34.0 g/dL (29.9-35.2); Mean Corpuscular Hemoglobin 29.3 pg (26.7-34.0); Mean Corpuscular Volume 86.3 fL (81.0-99.0); Platelet Count 295 10^3/uL (150-450); Red Blood Count 5.18 10^6/uL (4.20-5.40); White Blood Count 7.1 10^3/uL (4.0-11.0)
[2025-09-16 08:53] VITALS: O2SAT 98
[2025-09-16 09:01] LABS: Anion Gap 13.3; Blood Urea Nitrogen 6.0 mg/dL (7.0-18.0); Carbon Dioxide 26.5 mmol/L (21.0-32.0); Chloride 104 mmol/L (98-107); Glucose 95 mg/dL (74-106); Potassium 3.8 mmol/L (3.5-5.1); Sodium 140 mmol/L (136-145)
[2025-09-16 09:02] LABS: Alanine Aminotransferase 19 U/L (14-59); Albumin Globulin Ratio 1.0; Albumin Level 3.6 g/dL (3.4-5.0); Alkaline Phosphatase 78 U/L (46-116); Aspartate Amino Transferase 22 U/L (15-37); Calcium 9.2 mg/dL (8.5-10.1); Estimated GFR (African America >60 (>=60 mL/min/1.73m^2); Estimated GFR (Non-African Ame >60 (>=60 mL/min/1.73m^2); Globulin 3.5 g/dL; Total Protein 7.1 g/dL (6.4-8.2)
[2025-09-16 09:23] VITALS: PULSE 99; O2SAT 94
[2025-09-16 09:30] VITALS: BP 142/74; PULSE 100; O2SAT 96
== END 2025-09-16 09:54 | disposition home or self-care (01) ==
PROVIDERS: Emergency Provider Emergency Medicine; PCP Family Medicine
DX: J45.901 Unspecified asthma with (acute) exacerbation (principal); F17.210 Nicotine dependence, cigarettes, uncomplicated
CPT/HCPCS: 36415; 71045; 80053; 84703; 85025; 94640; 96365; 96375; 99284; J2919; J3475